=== PATIENT | male | born 1965 | race American Indian/Alaskan Native ===

== ENCOUNTER 2021-10-11 18:29 | Inpatient (IN) | payer OTHER, MEDICARE ==
[2021-10-11] MEDS ORDERED: LIP THERAPY VASELINE TP PRN (19:06)
[2021-10-11] MEDS ORDERED: MINERAL OIL/PETROLATUM, WHITE OPHTH OINT 3.5 GM OU PRN (19:06)
[2021-10-11] MEDS ORDERED: fentaNYL 100 MCG/2 ML INJ IV PRN (19:06)
[2021-10-11] MEDS ORDERED: SODIUM CHLORIDE 0.9% 1000 ML 1,000 ML IV ONE (19:06)
[2021-10-11] MEDS ORDERED: TETANUS,DIPH,PERTUSS(ACELL) VACCINE 0.5 ML SYRINGE IM ONE (19:09)
--- NOTE | 2021-10-11 19:10 | Emergency Department Report ---
ED General Adult HPI - General Chief complaint: Cardiac Arrest/CPR Stated complaint: CARDIAC ARREST Time Seen by Provider: 10/11/21 19:04 Source: EMS (Verbal report received from emergency medical services. EMS documentation not available at time of chart dictation ), RN notes reviewed, old records reviewed Mode of arrival: Stretcher Limitations: Altered Mental Status, Physical Limitation - History of Present Illness Initial comments: The patient was evaluated in the emergency department for symptoms described in the history of present illness. He/she was evaluated in the context of the global COVID-19 pandemic, which necessitated consideration that the patient might be at risk for infection with the virus that causes COVID-19. Institutional protocols and algorithms that pertain to the evaluation of patients at risk for COVID-19 are in a state of rapid change based on information released by regulatory bodies including the CDC and federal and state organizations. These policies and algorithms were followed during the patient's care in the emergency department. Please note that these policies, procedures and recommendations changed on a rapid basis. The patient is a 56-year-old gentleman. He is brought to the hospital as an out of hospital cardiac arrest. History obtained from EMS, as the patient arrives with a GCS of 3, with an endotracheal tube in place, receiving active CPR. EMS reports that this is a dialysis patient, who reportedly completed hemodialysis today. He arrives with paperwork from [facility], and appears to have a history of end-stage renal disease on hemodialysis, also has a history of diabetes, high cholesterol, hypertension. It appears that he was previously on Eliquis for unclear reasons. He also has a history of thoracic aorta stent graft placement. As per his enclosed paperwork, he sees a Dr. Matthias Kelly of vascular surgery at [place]; [phone]. 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 History obtained entirely from EMS They report that this patient collapsed at home after hemodialysis. They report that family and bystanders did not start CPR. It is unclear/uncertain how long elapsed tween the patient collapsing, and arrival of prehospital medical personnel. EMS reports to myself that the patient has been pulseless for over half hour. They intubated the patient, defibrillated him multiple times, and treated him with standard ACLS interventions. Upon arrival to this emergency room, the patient presents with a GCS of 3, and no pulse. Standard ACLS interventions are initiated. He has aggressive CPR, and appropriate medications. He develops multiple shockable rhythms, and he received multiple defibrillations. Amiodarone, lidocaine held given concern for hyperkalemia. EMS did not place a cervical collar in the field. After a prolonged resuscitation here in the emergency room, patient has return of spontaneous circulation. Given multiple cardiac arrest, tenuous hemodynamics, need for IV access, patient has a maximally sterile right-sided femoral central line placed by myself, using ultrasound guidance, please see procedure note after return of spontaneous circulation, cervical collar was placed under my direct supervision, with with C-spine immobilization. Please note that this hospital does not have a postarrest hypothermia protocol. -: This evening - Related Data Allergies Allergy/AdvReac Type Severity Reaction Status Date / Time Unable to Assess Allergy Unverified 10/11/21 20:15 ED Review of Systems ROS: Stated complaint: CARDIAC ARREST Other details as noted in HPI Comment: Unobtainable due to pts medical conditions ED Physical Exam - General Limitations: Altered Mental Status, Physical Limitation General appearance: obtunded - Head Head exam: Present: normocephalic, other (There is a right forehead abrasion) - Eye Eye exam: Present: other (The left pupil is midpoint and does not react to light. Conjunctival injection is noted. The right eye is cloudy, and appears to have a chronic opacity in the right). Absent: normal appearance - ENT ENT exam: Present: normal orophraynx, mucous membranes moist, normal external ear exam, other (There is a nasal abrasion. There is a right cheek abrasion) - Neck Neck exam: Present: normal inspection, other (Cervical collar in place). Absent: tenderness, meningismus - Respiratory Respiratory exam: Present: respiratory distress, other (Chest wall contusion) - Cardiovascular Cardiovascular Exam: Present: tachycardia, irregular rhythm. Absent: systolic murmur, diastolic murmur, rubs, gallop - GI/Abdominal GI/Abdominal exam: Present: soft. Absent: distended, tenderness, guarding, rebound, rigid, pulsatile mass - Rectal Rectal exam: Present: normal inspection - exam: Present: normal inspection External exam: Present: normal external exam - Extremities Exam Extremities exam: Present: normal inspection, other (2+ pulses noted in the bilateral upper and lower extremities. There is no palpable cord. negative H omans sign. Muscular compartments are soft. The pelvis is stable.). Absent: calf tenderness - Back Exam Back exam: Present: normal inspection. Absent: tenderness, CVA tenderness (R), CVA tenderness (L), paraspinal tenderness, vertebral tenderness - Neurological Exam Neurological exam: Present: altered (Nonverbal, GCS of 3) - Skin Skin exam: Present: warm, dry, intact, normal color. Absent: rash ED Course Vital Signs 10/11/21 10/11/21 10/11/21 19:10 19:11 19:15 Temperature Pulse Rate 97 H 103 H 89 Respiratory 10 L 12 Rate Blood Pressure 166/79 O2 Sat by Pulse 100 100 100 Oximetry 10/11/21 10/11/21 10/11/21 19:31 19:45 20:01 Temperature Pulse Rate 97 H 95 H 97 H Respiratory 21 18 21 Rate Blood Pressure 106/70 144/91 166/79 O2 Sat by Pulse 100 100 100 Oximetry 10/11/21 10/11/21 10/11/21 20:12 20:15 20:20 Temperature 97.7 F Pulse Rate 90 Respiratory 20 19 Rate Blood Pressure 182/100 O2 Sat by Pulse 100 100 Oximetry 10/11/21 10/11/21 10/11/21 20:31 20:45 21:01 Temperature Pulse Rate 94 H 99 H 97 H Respiratory 20 20 19 Rate Blood Pressure 188/106 197/102 197/108 O2 Sat by Pulse 100 100 100 Oximetry 10/11/21 10/11/21 10/11/21 21:15 21:17 21:31 Temperature Pulse Rate 95 H 100 H 83 Respiratory 21 20 Rate Blood Pressure 205/105 205/105 169/85 O2 Sat by Pulse 100 100 100 Oximetry 10/11/21 10/11/21 10/11/21 21:45 22:01 22:09 Temperature Pulse Rate 76 84 Respiratory 19 20 20 Rate Blood Pressure 172/98 188/104 O2 Sat by Pulse 100 100 100 Oximetry 10/11/21 10/11/21 10/11/21 22:15 22:31 22:45 Temperature Pulse Rate 85 94 H 84 Respiratory 16 19 18 Rate Blood Pressure 191/100 179/88 166/94 O2 Sat by Pulse 100 100 100 Oximetry 10/11/21 10/11/21 10/11/21 23:27 23:31 23:45 Temperature Pulse Rate 106 H 92 H 86 Respiratory 13 18 18 Rate Blood Pressure 166/94 194/113 202/108 O2 Sat by Pulse 100 100 100 Oximetry 10/12/21 10/12/21 10/12/21 00:01 00:15 00:31 Temperature Pulse Rate 91 H 89 85 Respiratory 17 13 17 Rate Blood Pressure 178/109 187/101 171/116 O2 Sat by Pulse 100 100 100 Oximetry 10/12/21 10/12/21 10/12/21 00:45 01:01 01:15 Temperature Pulse Rate 94 H 94 H 99 H Respiratory 13 16 16 Rate Blood Pressure 171/116 168/111 168/111 O2 Sat by Pulse 100 100 100 Oximetry 10/12/21 10/12/21 10/12/21 01:31 01:45 02:01 Temperature Pulse Rate 97 H 104 H 97 H Respiratory 17 16 10 L Rate Blood Pressure 179/113 179/113 183/115 O2 Sat by Pulse 100 100 100 Oximetry 10/12/21 10/12/21 10/12/21 02:15 02:31 02:45 Temperature Pulse Rate 104 H 99 H 105 H Respiratory 19 17 10 L Rate Blood Pressure 183/115 180/99 180/99 O2 Sat by Pulse 100 100 100 Oximetry 10/12/21 10/12/21 10/12/21 03:01 03:31 03:58 Temperature Pulse Rate 109 H 108 H 109 H Respiratory 18 18 Rate Blood Pressure 170/103 184/106 170/103 O2 Sat by Pulse 100 100 Oximetry 10/12/21 10/12/21 10/12/21 03:59 04:00 04:01 Temperature Pulse Rate 96 H 96 H Respiratory 17 Rate Blood Pressure 185/98 185/98 O2 Sat by Pulse 100 100 100 Oximetry 10/12/21 10/12/21 10/12/21 04:30 05:01 05:31 Temperature Pulse Rate 93 H 95 H 97 H Respiratory 16 20 15 Rate Blood Pressure 146/82 167/89 153/83 O2 Sat by Pulse 100 100 100 Oximetry 10/12/21 10/12/21 10/12/21 06:01 06:31 07:01 Temperature Pulse Rate 102 H 93 H 89 Respiratory 19 18 18 Rate Blood Pressure 153/83 170/86 161/92 O2 Sat by Pulse 100 100 100 Oximetry 01/21/22 01/21/22 01/21/22 08:01 08:30 08:57 Temperature Pulse Rate 94 H 93 H 96 H Respiratory 17 16 Rate Blood Pressure 145/80 145/80 154/87 O2 Sat by Pulse 100 100 100 Oximetry 10/12/21 10/12/21 10/12/21 09:01 09:31 10:01 Temperature Pulse Rate 95 H 97 H 95 H Respiratory 16 15 16 Rate Blood Pressure 154/87 149/89 157/92 O2 Sat by Pulse 100 100 100 Oximetry 10/12/21 10/12/21 10/12/21 10:31 11:01 11:31 Temperature Pulse Rate 90 93 H 89 Respiratory 16 17 18 Rate Blood Pressure 149/87 146/83 147/91 O2 Sat by Pulse 100 100 100 Oximetry 10/12/21 10/12/21 10/12/21 12:01 12:31 13:01 Temperature Pulse Rate 89 102 H 95 H Respiratory 16 22 16 Rate Blood Pressure 151/82 147/82 151/81 O2 Sat by Pulse 100 100 100 Oximetry 10/12/21 10/12/21 10/12/21 13:31 14:01 14:31 Temperature Pulse Rate 102 H 101 H 105 H Respiratory 16 16 16 Rate Blood Pressure 150/84 147/90 149/81 O2 Sat by Pulse 100 100 100 Oximetry 10/12/21 10/12/21 10/12/21 15:01 15:31 16:01 Temperature Pulse Rate 102 H 97 H 104 H Respiratory 16 16 16 Rate Blood Pressure 147/78 152/88 152/82 O2 Sat by Pulse 100 100 100 Oximetry 10/12/21 10/12/21 10/12/21 16:31 16:38 17:01 Temperature Pulse Rate 100 H 99 H 104 H Respiratory 16 17 Rate Blood Pressure 151/85 152/88 147/88 O2 Sat by Pulse 100 100 100 Oximetry 10/12/21 10/12/21 10/12/21 17:31 18:01 18:31 Temperature Pulse Rate 100 H 99 H 103 H Respiratory 16 16 16 Rate Blood Pressure 157/82 160/79 149/87 O2 Sat by Pulse 100 100 100 Oximetry - Reevaluation(s) Reevaluation #1: 10/11/21 20:04 Differential diagnosis, including but not limited to: Hyperkalemia, azotemia, uremia, pneumonia, urinary tract infection, closed head injury, cervical spine injury, facial injury, aortic dissection Assessment and plan: 56-year-old gentleman status post [id number] cardiac arrest, prolonged resuscitation, now with return of spontaneous circulation. Patient demonstrated myoclonic jerks. He most likely has irreversible anoxic brain injury. This hospital does not have a postarrest hypothermia protocol. The patient is not currently accompanied by friends or family at this time for collateral information or additional information. Obtain appropriate laboratory studies, CT scan of the brain, facial bones and cervical spine, and CT angiogram chest, abdomen pelvis with aorta protocol. Maintain patient on antibiotics, start steroids, continue fluids, and vasopressors if necessary. Contacted critical care physician on-call, Dr. Levy Discussed the patient's history, physical, plan of care, and overall clinical impression. She is in agreement with the plan of care. The critical care team will facilitate admission to the ICU, presuming no findings noted on CT scan that would require transfer. Currently awaiting callback from nephrology. 10/11/21 20:18 Discussed the patient's history, physical, laboratory studies and clinical impression with nephrology on-call, Dr. Abel Waldrop Elevated troponin is likely a type II troponin leak. Hypercalcemia likely s econdary to dehydration. Lactic acidosis likely multifactorial, likely secondary primarily to cardiac arrest, and suspect that this is a type II lactic acidosis. Lactated Ringer's fluid is ordered. Since patient is status postcardiac arrest and has an abnormal x-ray of the chest, including what appears to be a thoracic aortic stent, he requires emergent CT angiogram to exclude time sensitive diagnosis, such as aortic dissection and/or aortic catastrophe. He is not accompanied by friends or f amily at this time for collateral information or consent, and therefore, I have emergently and administratively consented this patient for CT scan with IV contrast to evaluate for time sensitive diagnoses. Consent form filled out by myself and placed on the chart. Care be transferred to the oncoming ER physician to follow-up on CT scans and arrange for final disposition to the hospitalist service, if no findings noted that would require transfer - Central Line Placement Right Femoral Consent Obtained: emergent situation Time Out Performed: Yes Patient Placed on Monitor/Pulse Ox: Yes MD Prep: mask, gown, gloves Central Line Prep: Chlorhexidine scrub Local Anesthesia Used: Lidocaine 1% Amount of Anesthesia Used (mls): 5 Ultrasound Used for Placement: Yes Central Line Lumen Inserted: triple Reason for Insertion: Emergency Venous Access Bloods Obtained for Lab: No Central Line Position: good blood return, all ports aspirated, flus, sutured in place with 2-0 Dressing Applied: Tegaderm Complications: none Additional Comments: Patient prepped and draped in typical maximal sterile fashion. Using ultrasound guidance, right-sided femoral vein is cannulated with an 18-gauge needle, with 3 inch plastic catheter, guidewire, 0.032 x 60 cm, J-tip with a 3 mm radius is then inserted into the guiding catheter, and appropriate luminal placement is confirmed with real-time coqso-vd-fyfy ultrasound guidance. A stab incision is made with an 11-gauge blade, and then incision is dilated. The 7 [place] triple-lumen catheter has each of the 3 ports flushed with sterile saline in advance of placement. Then, a 7 [place] triple-lumen catheter is inserted over the guidewire, and sutured to the skin. Real-time ultrasound guidance confirms appropriate luminal placement. Ports are aspirated easily, and flushed easily. Blue Biopatch is then affixed to the skin, and Tegaderm is applied to the skin. This patient tolerated the procedure well, and without obvious complication. Blood loss estimated at less than 50 cc. ED Medical Decision Making - Lab Data Result diagrams: 10/11/21 19:27 10/11/21 19:27 Lab Results 10/11/21 Range/Units 19:27 Blood Type O POSITIVE Lab Results 10/11/21 10/11/21 10/11/21 Range/Units 19:27 19:27 19:27 WBC 8.8 (4.5-11.0) K/mm3 RBC 3.52 L (3.65-5.03) M/mm3 Hgb 9.5 L (11.8-15.2) gm/dl Hct 32.4 L (35.5-45.6) % MCV 92 (84-94) fl MCH 27 L (28-32) pg MCHC 29 L (32-34) % RDW 20.8 H (13.2-15.2) % Plt Count 166 (140-440) K/mm3 Seg Neutrophils % Dev Technical Mgr PT 16.0 H (12.2-14.9) Sec. INR 1.16 H (0.87-1.13) APTT 54.4 H (24.2-36.6) Sec. Sodium (137-145) mmol/L Potassium (3.6-5.0) mmol/L Chloride (98-107) mmol/L Carbon Dioxide (22-30) mmol/L Anion Gap mmol/L BUN (9-20) mg/dL Creatinine (0.8-1.3) mg/dL Estimated GFR ml/min BUN/Creatinine Ratio % Glucose (75-100) mg/dL Lactic Acid 6.90 H* (0.7-2.0) mmol/L Calcium (8.4-10.2) mg/dL Total Bilirubin (0.1-1.2) mg/dL AST (5-40) units/L ALT (7-56) units/L Alkaline Phosphatase (35-129) units/L Ammonia (25-60) umol/L Total Creatine Kinase (55-170) units/L Troponin T (0.00-0.029) ng/mL Total Protein (6.3-8.2) g/dL Albumin (3.9-5) g/dL Albumin/Globulin Ratio % Salicylates (2.8-20.0) mg/dL Acetaminophen (10.0-30.0) ug/mL Plasma/Serum Alcohol (0-0.07) % Blood Type 10/11/21 10/11/21 10/11/21 Range/Units 19:27 19:27 19:27 WBC (4.5-11.0) K/mm3 RBC (3.65-5.03) M/mm3 Hgb (11.8-15.2) gm/dl Hct (35.5-45.6) % MCV (84-94) fl MCH (28-32) pg MCHC (32-34) % RDW (13.2-15.2) % Plt Count (140-440) K/mm3 Seg Neutrophils % PT (12.2-14.9) Sec. INR (0.87-1.13) APTT (24.2-36.6) Sec. Sodium 143 (137-145) mmol/L Potassium 3.2 L (3.6-5.0) mmol/L Chloride 100.3 (98-107) mmol/L Carbon Dioxide 24 (22-30) mmol/L Anion Gap 22 mmol/L BUN 15 (9-20) mg/dL Creatinine 3.3 H (0.8-1.3) mg/dL Estimated GFR 23 ml/min BUN/Creatinine Ratio 5 % Glucose 159 H (75-100) mg/dL Lactic Acid (0.7-2.0) mmol/L Calcium 12.4 H* (8.4-10.2) mg/dL Total Bilirubin 0.70 (0.1-1.2) mg/dL AST 81 H (5-40) units/L ALT 39 (7-56) units/L Alkaline Phosphatase 184 H (35-129) units/L Ammonia 36.0 (25-60) umol/L Total Creatine Kinase 43 L (55-170) units/L Troponin T 0.340 H* (0.00-0.029) ng/mL Total Protein 6.5 (6.3-8.2) g/dL Albumin 3.5 L (3.9-5) g/dL Albumin/Globulin Ratio 1.2 % Salicylates < 0.3 L (2.8-20.0) mg/dL Acetaminophen (10.0-30.0) ug/mL Plasma/Serum Alcohol (0-0.07) % Blood Type 10/11/21 10/11/21 10/11/21 Range/Units 19:27 19:27 19:27 WBC (4.5-11.0) K/mm3 RBC (3.65-5.03) M/mm3 Hgb (11.8-15.2) gm/dl Hct (35.5-45.6) % MCV (84-94) fl MCH (28-32) pg MCHC (32-34) % RDW (13.2-15.2) % Plt Count (140-440) K/mm3 Seg Neutrophils % PT (12.2-14.9) Sec. INR (0.87-1.13) APTT (24.2-36.6) Sec. Sodium (137-145) mmol/L Potassium (3.6-5.0) mmol/L Chloride (98-107) mmol/L Carbon Dioxide (22-30) mmol/L Anion Gap mmol/L BUN (9-20) mg/dL Creatinine (0.8-1.3) mg/dL Estimated GFR ml/min BUN/Creatinine Ratio % Glucose (75-100) mg/dL Lactic Acid (0.7-2.0) mmol/L Calcium (8.4-10.2) mg/dL Total Bilirubin (0.1-1.2) mg/dL AST (5-40) units/L ALT (7-56) units/L Alkaline Phosphatase (35-129) units/L Ammonia (25-60) umol/L Total Creatine Kinase (55-170) units/L Troponin T (0.00-0.029) ng/mL Total Protein (6.3-8.2) g/dL Albumin (3.9-5) g/dL Albumin/Globulin Ratio % Salicylates (2.8-20.0) mg/dL Acetaminophen 5.0 L (10.0-30.0) ug/mL Plasma/Serum Alcohol < 0.01 (0-0.07) % Blood Type O POSITIVE - EKG Data 10/11/21 20:02 The EKG is interpreted at 19: 49 A. fib, rate 101 bpm. Normal axis, QTC 508 ms, PVC, motion artifact. Abnormal EKG. Not a STEMI. No prior for comparison. - Radiology Data Radiology results: report reviewed, image reviewed CHEST 1 VIEW 10/11/2021 7:15 PM INDICATION / CLINICAL INFORMATION: ETT pl acement. COMPARISON: None available. FINDINGS: SUPPORT DEVICES: An ET tube terminates 3 cm above the diamond. HEART / MEDIASTINUM: The cardiac silhouette is mildly enlarged with prior sternotomy and thoracic aortic stent graft placement. LUNGS / PLEURA: There are nonspecific generalized bilateral pulmonary opacities. No significant pleural effusion. No pneumothorax. ADDITIONAL FINDINGS: No sign ificant additional findings. IMPRESSION: 1. Satisfactory positioning of ET tube. 2. Nonspecific bilateral pulmonary opacities could represent pneumonia or edema/atelectasis. Continued radiographic follow-up to resolution is recommended. Signer Name: Tyler Olivarez MD Signed: 10/11/2021 6:29 PM Workstation Name: [id number] Critical Care Time: Yes Critical care time in (mins) excluding proc time.: 74 Critical care attestation.: If time is entered above; I have spent that time in minutes in the direct care of this critically ill patient, excluding procedure time. ED Disposition Clinical Impression: Cardiac arrest, Closed head injury, Atrial fibrillation, End stage renal disease, SIRS (systemic inflammatory response syndrome), Status post insertion of endovascular thoracic aortic stent graft, Hypercalcemia, Hypokalemia Disposition: 09 ADMITTED INPATIENT Is pt being admited?: Yes Does the pt Need Aspirin: No Condition: Critical
--- NOTE | 2021-10-11 19:33 | XRay Report ---
CHEST 1 VIEW 10/11/2021 7:15 PM INDICATION / CLINICAL INFORMATION: ETT placement. COMPARISON: None available. FINDINGS: SUPPORT DEVICES: An ET tube terminates 3 cm above the diamond. HEART / MEDIASTINUM: The cardiac silhouette is mildly enlarged with prior sternotomy and thoracic aor tic stent graft placement. LUNGS / PLEURA: There are nonspecific generalized bilateral pulmonary opacities. No significant pleur al effusion. No pneumothorax. ADDITIONAL FINDINGS: No significant additional findings. IMPRESSION: 1. Satisfactory positioning of ET tube. 2. Nonspecific bilateral pulmonary opacities could represent pneumonia or edema/atelectasis. Continue d radiographic follow-up to resolution is recommended. Signer Name: Tyler Olivarez MD Signed: 10/11/2021 7:29 PM Workstation Name: [id number]
[2021-10-11] MEDS ORDERED: AZITHROMYCIN/NS 500 MG/250 ML 500 MG/250 ML BAG IV ONE (19:35)
[2021-10-11] MEDS ORDERED: cefTRIAXone/NS 1 GM/50 ML 1 GM/50 ML BAG IV ONE (19:35)
[2021-10-11] MEDS ORDERED: dexAMETHasone 4 MG/ML VIAL IV ONE (19:55)
[2021-10-11 20:01] LABS: Mean Corpuscular HGB Conc 29 % (32-34); Mean Corpuscular Volume 92 fl (84-94); Platelet Count 166 K/mm3 (140-440); Red Blood Count 3.52 M/mm3 (3.65-5.03)
[2021-10-11 20:07] LABS: Hematocrit 32.4 % (35.5-45.6); Hemoglobin 9.5 gm/dl (11.8-15.2); Red Cell Distribution Width 20.8 % (13.2-15.2)
[2021-10-11] MEDS ORDERED: LACTATED RINGERS 1000 ML IV SOLN IV ONE (20:08)
[2021-10-11 20:11] LABS: INR 1.16 (0.87-1.13)
[2021-10-11 20:12] LABS: Partial Thromboplastin Time 54.4 Sec. (24.2-36.6)
[2021-10-11 20:15] LABS: Albumin 3.5 g/dL (3.9-5)
[2021-10-11 20:16] LABS: Calcium 12.4 mg/dL (8.4-10.2)
[2021-10-11 20:50] LABS: Chol/HDL Ratio 2.03 %
[2021-10-11] MEDS: fentaNYL DRIP Premix 2,000 MCG/100 ML BAG IV SCH (20:58)
[2021-10-11] MEDS: POTASSIUM CHLORIDE 10 MEQ 10 MEQ/100 ML BAG IV SCH ×2 (22:00→23:00)
[2021-10-11] MEDS: SENNOSIDES/DOCUSATE SODIUM 8.6/50 MG TAB FEEDTUBE SCH (22:17)
[2021-10-11] MEDS: FAMOTIDINE 20 MG/2 ML INJ IV SCH (22:17)
--- NOTE | 2021-10-12 00:09 | Cat Scan Report ---
CT HEAD WITHOUT CONTRAST INDICATION / CLINICAL INFORMATION: Cardiac arrest, closed head injury. TECHNIQUE: All CT scans at this location are performed using CT dose reduction for ALARA by means of automated exposure control. COMPARISON: None available. FINDINGS: HEMORRHAGE: None. EXTRA-AXIAL SPACES: Normal in size and morphology for the patient's age. VENTRICULAR SYSTEM: Normal in size and morphology for the patient's age. CEREBRAL PARENCHYMA: Lacunar infarct in the right periventricular white matter. No acute territorial infarct. MIDLINE SHIFT / HERNIATION: None. CEREBELLUM / BRAINSTEM: No significant abnormality. ORBITS: Contracted right optic globe which is likely chronic. SOFT TISSUES: Right periorbital soft tissue swelling. SKULL: No significant abnormality. PARANASAL SINUSES / MASTOID AIR CELLS: Small amount of fluid in the maxillary and ethmoid air cells. ADDITIONAL FINDINGS: None. IMPRESSION: 1. No acute intracranial abnormality. 2. Chronic appearing lacunar infarct in the right periventricular white matter. 3. Right periorbital soft tissue swelling. Signer Name: Abel Saab MD Signed: 10/12/2021 12:05 AM Workstation Name: [id number]
--- NOTE | 2021-10-12 00:12 | Cat Scan Report ---
CT MAXILLOFACIAL WITHOUT CONTRAST INDICATION / CLINICAL INFORMATION: Cardiac arrest, closed head injury. TECHNIQUE: All CT scans at this location are performed using CT dose reduction for ALARA by means of automated exposure control. COMPARISON: CT head performed at the same time. FINDINGS: FACIAL BONES: Mildly comminuted and depressed nasal bone fractures. No other facial bone fracture. PARANASAL SINUSES: Fluid within the ethmoid air cells and maxillary/sphenoid sinuses. ORBITS: Bony orbits are intact. Contracted and calcified right optic globe appears chronic. SOFT TISSUES: Right periorbital soft tissue swelling. VISUALIZED INTRACRANIAL STRUCTURES: No significant abnormality. ADDITIONAL FINDINGS: None. IMPRESSION: 1. Mildly comminuted and depressed nasal bone fractures. No other facial bone fracture. 2. Right periorbital soft tissue swelling. Signer Name: Abel Saab MD Signed: 10/12/2021 12:08 AM Workstation Name: [id number]
--- NOTE | 2021-10-12 00:13 | Cat Scan Report ---
CT CERVICAL SPINE WITHOUT CONTRAST INDICATION / CLINICAL INFORMATION: Cardiac arrest, closed head and neck injury. TECHNIQUE: Axial CT images were obtained through the cervical spine. Sagittal and coronal reformatted images were produced. All CT scans at this location are performed using CT dose reduction for ALARA by means of automated exposure control. COMPARISON: None available. FINDINGS: VERTEBRAE: No significant abnormality. ALIGNMENT: No significant abnormality. DISC SPACES: Mild to moderate multilevel discogenic spondylosis. FACET JOINTS: No significant abnormality. CRANIOCERVICAL JUNCTION:No significant abnormality. SPINAL CANAL: No significant abnormality. PARASPINAL SOFT TISSUES: No significant abnormality. ADDITIONAL FINDINGS: None. LUNG APICES: No significant abnormality of visualized lungs. IMPRESSION: 1. No acute abnormality. Signer Name: Abel Saab MD Signed: 10/12/2021 12:09 AM Workstation Name: [id number]
--- NOTE | 2021-10-12 00:22 | Cat Scan Report ---
CTA CHEST WITH CONTRAST INDICATION / CLINICAL INFORMATION: Cardiac arrest, Cardiomegaly, Aorta protocol. TECHNIQUE: Axial CT images were obtained through the chest after injection of 100 mL Omnipaque 350 IV contrast. 3 plane MIP and/or 3D reconstructions were produced. All CT scans at this location are per formed using CT dose reduction for ALARA by means of automated exposure control. COMPARISON: None available. FINDINGS: PULMONARY ARTERIES: No pulmonary emboli. THORACIC AORTA: Thoracic endograft stent extends from the distal ascending thoracic aorta through the aortic arch into the mid descending thoracic aorta. Graft is patent without acute abnormality. Proxi mal left common carotid artery stent is patent. Occlusion of the proximal left subclavian artery with reconstitution by a left common carotid-subclavian bypass graft. HEART: Heart is moderately enlarged. No significant pericardial effusion. CORONARY ARTERY CALCIFICATION: Moderate. Left and right coronary artery stents. MEDIASTINUM / MACY: Soft tissue hematoma in the upper mediastinum possibly related to recent midline sternotomy and aortic stent graft placement. No acute arterial extravasation into the mediastinum. PLEURA: Small right pleural effusion. Moderately extensive left calcified pleural plaques possibly re lated to previous hemothorax. Small amount of fluid loculated in the right major fissure. No pneumoth orax. LUNGS: Mosaic attenuation of the lungs possibly related to lower airways disease. Impacted mucus seen within the posterior right lower lobe. ADDITIONAL FINDINGS: Left upper extremity venous stents appear patent. Moderate stenosis of the left brachiocephalic vein. UPPER ABDOMEN: Small amount of free fluid in the upper abdomen. See separate CT abdomen and pelvis f or full description. SKELETAL STRUCTURES: Old, healed left rib fractures likely related to previous thoracotomy. Recent st ernotomy. IMPRESSION: 1. Patent thoracic aortic stent graft with no definite acute abnormality of the thoracic aorta. Super ior mediastinal soft tissue density may represent hematoma related to recent surgery. No acute arteri al extravasation. 2. Cardiomegaly. 3. Small right pleural effusion. Signer Name: Abel Saab MD Signed: 10/12/2021 12:18 AM Workstation Name: [id number]
--- NOTE | 2021-10-12 00:29 | Cat Scan Report ---
CT ABDOMEN AND PELVIS WITH CONTRAST INDICATION / CLINICAL INFORMATION: Cardiac arrest. TECHNIQUE: Axial CT images were obtained through the abdomen and pelvis after 100 mL Omnipaque [address] scans at this location are performed using CT dose reduction for ALARA by means of automated exposure control. COMPARISON: CTA chest performed at the same time. FINDINGS: LOWER CHEST: See CTA chest report. LIVER: No significant abnormality. GALLBLADDER: No significant abnormality. BILE DUCTS: No significant abnormality. PANCREAS: No significant abnormality. SPLEEN: No significant abnormality. ADRENALS: No significant abnormality. RIGHT KIDNEY / URETER: Polycystic kidney. No hydronephrosis. LEFT KIDNEY / URETER: Polycystic kidney. No hydronephrosis. STOMACH / SMALL BOWEL: No significant abnormality. COLON: Diverticulosis without acute inflammation. APPENDIX: Not visualized. PERITONEUM: Small amount of free fluid in the abdomen and pelvis. No free air. No fluid collection. LYMPH NODES: No significant adenopathy. AORTA / ARTERIES: Moderate atherosclerotic calcification without acute abnormality. Embolization coil s in the pancreaticoduodenal artery and other branches of the SMA. IVC / VEINS: Right femoral central venous line in the right external iliac vein. Small right groin so ft tissue, likely related to vascular access. URINARY BLADDER: Contracted around a Barolw catheter. REPRODUCTIVE ORGANS: No significant abnormality. ADDITIONAL FINDINGS: Mild body wall edema. SKELETAL SYSTEM: Bilateral chronic sacroiliitis with bony ankylosis. No acute osseous abnormality. IMPRESSION: 1. No acute process in the abdomen or pelvis. 2. Small amount of ascites and body wall edema which can be seen in anasarca or other fluid imbalance . 3. Please see CTA chest performed at the same time for further details. Signer Name: Abel Saab MD Signed: 10/12/2021 12:25 AM Workstation Name: [id number]
[2021-10-12] MEDS ORDERED: MORPHINE 2 MG/1 ML INJ IV PRN (02:15)
[2021-10-12] MEDS ORDERED: MAGNESIUM HYDROXIDE (MOM) ORAL LIQD UDC PO PRN (02:15)
[2021-10-12] MEDS ORDERED: ONDANSETRON 4 MG/2 ML INJ IV PRN (02:15)
[2021-10-12] MEDS ORDERED: ACETAMINOPHEN 650 MG RECT SUPP PR PRN (02:15)
[2021-10-12] MEDS ORDERED: MORPHINE 4 MG/1 ML INJ IV PRN (02:15)
[2021-10-12] MEDS ORDERED: SODIUM CHLORIDE 0.9% 1000 ML 1,000 ML IV SCH (02:15)
[2021-10-12 02:29] LABS: Band Neutrophils # (Manual) 0.1 K/mm3; Basophils % (Manual) 0 % (0.0-1.8); Eosinophils % (Manual) 0 % (0.0-4.3); Promyelocytes # (Manual) 0.1 K/mm3; Total Cells Counted 100
[2021-10-12 02:30] LABS: Anisocytosis 1+; Giant Platelets Rare; Hypochromasia Few; Large Platelets Few; Macrocytosis Few; Platelet Estimate Consistent w Auto
--- NOTE | 2021-10-12 02:40 | History and Physical Report ---
History of Present Illness Date of examination: 10/12/21 Date of admission: 10/12/2021 Chief complaint: Cardiac Arrest History of present illness: 56-year-old male brought into the emergency room by EMS in cardiac arrest. Most information was obtained from the ER staff as patient is already intubated and sedated. Patient appears to have known history of end-stage renal disease on dialysis, diabetes mellitus, hyperlipidemia and hypertension, history of thoracic aorta stent graft placement. Patient was said to have collapsed at home after dialysis today. No CPR was started by the family or bystanders. EMS indicates the patient was pulseless for about an hour. He was intubated, defibrillated multiple times according to ACLS protocol. After prolonged resuscitation in the emergency room upon arrival patient had return of spontaneous circulation. Work-up in the emergency room today, chest x-ray reveals nonspecific bilateral pulmonary opacities which could represent pneumonia or edema. CT of the abdomen and pelvis was unremarkable. Lab was significant for lactic acidosis, hypercalcemia of 12.4, creatinine of 3.3, hypokalemia of 3.2. Past History Past Medical History: other (Not obtainable) Past Surgical History: Other (Not obtainable) Family history: other (Not obtainable) Medications and Allergies Allergies Allergy/AdvReac Type Severity Reaction Status Date / Time Unable to Assess Allergy Unverified 10/11/21 20:15 Active Meds: Active Medications Acetaminophen (Acetaminophen 650 Mg Rect Supp) 650 mg IA Q6H PRN PRN Reason: Pain MILD(1-3)/Fever >100.5/SAM Famotidine (Famotidine 20 Mg/2 Ml Inj) 20 mg IV BID OK Last Admin: 10/11/21 22:17 Dose: 20 mg Fentanyl (Fentanyl 100 Mcg/2 Ml Inj) 50 mcg IV Q10MIN PRN PRN Reason: ANALGESIA Hydrophilic Ointment (Lip Therapy Vaseline) 1 applic TP Q2HR PRN PRN Reason: Dry Lips Fentanyl Citrate (Fentanyl Drip Premix) 2,000 mcg in 100 mls @ 3.856 mls/hr IV TITR OK; Protocol Last Admin: 10/11/21 20:58 Dose: 2 mcg/kg/hr, 7.711 mls/hr Sodium Chloride (Nacl 0.9% 1000 Ml) 1,000 mls @ 125 mls/hr IV DIRECT OK Magnesium Hydroxide (Magnesium Hydroxide (Mom) Oral Liqd Udc) 30 ml PO Q4H PRN PRN Reason: Constipation Morphine Sulfate (Morphine 2 Mg/1 Ml Inj) 2 mg IV Q4H PRN PRN Reason: Pain, Moderate (4-6) Morphine Sulfate (Morphine 4 Mg/1 Ml Inj) 4 mg IV Q4H PRN PRN Reason: Pain , Severe (7-10) Multi-Ingred Cream/Lotion/Oil/Oint (Mineral Oil/Petrolatum, White Ophth Oint 3.5 Gm) 1 applic OU Q4HR PRN PRN Reason: Dry Eye(s) Ondansetron HCl (Ondansetron 4 Mg/2 Ml Inj) 4 mg IV Q8H PRN PRN Reason: Nausea And Vomiting Senna/Docusate Sodium (Sennosides/Docusate Sodium 8.6/50 Mg Tab) 1 tab FEEDTUBE BID OK Last Admin: 10/11/21 22:17 Dose: Not Given Sodium Chloride (Sodium Chloride 0.9% 10 Ml Flush Syringe) 10 ml IV BID [facility] Sodium Chloride (Sodium Chloride 0.9% 10 Ml Flush Syringe) 10 ml IV PRN PRN PRN Reason: LINE FLUSH Review of Systems ROS unobtainable: due to endotracheal tube Exam - Constitutional Vitals: Temp Pulse Resp BP Pulse Ox 97.7 F 94 H 13 171/116 100 10/11/21 20:12 10/12/21 00:45 10/12/21 00:45 10/12/21 00:45 10/12/21 00:45 General appearance: Present: no acute distress, well-nourished, other (Intubated and Sedated) - EENT Eyes: Present: PERRL, EOM intact. Absent: scleral icterus ENT: hearing intact, clear oral mucosa, dentition normal - Neck Neck: Present: supple, normal ROM - Respiratory Respiratory effort: normal Respiratory: bilateral: CTA - Cardiovascular Rhythm: regular Heart Sounds: Present: S1 & S2. Absent: gallop, systolic murmur, diastolic murmur, rub, click - Extremities Extremities: no ischemia, pulses intact, pulses symmetrical, No edema, normal temperature, normal color, Full ROM, abnormal (AV fistula in the left upper arm) Peripheral Pulses: within normal limits - Abdominal General gastrointestinal: Present: soft, non-tender, non-distended, normal bowel sounds. Absent: mass - Integumentary Integumentary: Present: clear, warm, dry. Absent: rash - Musculoskeletal Musculoskeletal: strength equal bilaterally - Psychiatric Psychiatric: cooperative - Neurologic Neurologic: CNII-XII intact, no focal deficits, other (Intubated and sedated) HEART Score - HEART Score Troponin: Troponin T 0.340 ng/mL (0.00-0.029) H* 10/11/21 19:27 Results - Labs CBC & Chem 7: 10/11/21 19:27 10/11/21 19:27 Labs: Abnormal lab results 10/11/21 10/11/21 10/11/21 Range/Units 19: 19: 19:27 RBC 3.52 L (3.65-5.03) M/mm3 Hgb 9.5 L (11.8-15.2) gm/dl Hct 32.4 L (35.5-45.6) % MCH 27 L (28-32) pg MCHC 29 L (32-34) % RDW 20.8 H (13.2-15.2) % Seg Neuts % (Manual) 93.0 H (40.0-70.0) % Lymphocytes % (Manual) 1.0 L (13.4-35.0) % Seg Neutrophils # Man 8.2 H (1.8-7.7) K/mm3 Lymphocytes # (Manual) 0.1 L (1.2-5.4) K/mm3 PT 16.0 H (12.2-14.9) Sec. INR 1.16 H (0.87-1.13) APTT 54.4 H (24.2-36.6) Sec. Potassium (3.6-5.0) mmol/L Creatinine (0.8-1.3) mg/dL Glucose (75-100) mg/dL Lactic Acid 6.90 H* (0.7-2.0) mmol/L Calcium (8.4-10.2) mg/dL AST (5-40) units/L Alkaline Phosphatase (35-129) units/L Total Creatine Kinase (55-170) units/L Troponin T (0.00-0.029) ng/mL Albumin (3.9-5) g/dL HDL Cholesterol (40-59) mg/dL Salicylates (2.8-20.0) mg/dL Acetaminophen (10.0-30.0) ug/mL 10/11/21 10/11/21 10/11/21 Range/Units 19:27 19:27 19:27 RBC (3.65-5.03) M/mm3 Hgb (11.8-15.2) gm/dl Hct (35.5-45.6) % MCH (28-32) pg MCHC (32-34) % RDW (13.2-15.2) % Seg Neuts % (Manual) (40.0-70.0) % Lymphocytes % (Manual) (13.4-35.0) % Seg Neutrophils # Man (1.8-7.7) K/mm3 Lymphocytes # (Manual) (1.2-5.4) K/mm3 PT (12.2-14.9) Sec. INR (0.87-1.13) APTT (24.2-36.6) Sec. Potassium 3.2 L (3.6-5.0) mmol/L Creatinine 3.3 H (0.8-1.3) mg/dL Glucose 159 H (75-100) mg/dL Lactic Acid (0.7-2.0) mmol/L Calcium 12.4 H* (8.4-10.2) mg/dL AST 81 H (5-40) units/L Alkaline Phosphatase 184 H (35-129) units/L Total Creatine Kinase 43 L (55-170) units/L Troponin T 0.340 H* (0.00-0.029) ng/mL Albumin 3.5 L (3.9-5) g/dL HDL Cholesterol 63 H (40-59) mg/dL Salicylates < 0.3 L (2.8-20.0) mg/dL Acetaminophen 5.0 L (10.0-30.0) ug/mL 10/12/21 Range/Units 01:42 RBC (3.65-5.03) M/mm3 Hgb (11.8-15.2) gm/dl Hct (35.5-45.6) % MCH (28-32) pg MCHC (32-34) % RDW (13.2-15.2) % Seg Neuts % (Manual) (40.0-70.0) % Lymphocytes % (Manual) (13.4-35.0) % Seg Neutrophils # Man (1.8-7.7) K/mm3 Lymphocytes # (Manual) (1.2-5.4) K/mm3 PT (12.2-14.9) Sec. INR (0.87-1.13) APTT (24.2-36.6) Sec. Potassium (3.6-5.0) mmol/L Creatinine (0.8-1.3) mg/dL Glucose (75-100) mg/dL Lactic Acid 2.70 H* (0.7-2.0) mmol/L Calcium (8.4-10.2) mg/dL AST (5-40) units/L Alkaline Phosphatase (35-129) units/L Total Creatine Kinase (55-170) units/L Troponin T (0.00-0.029) ng/mL Albumin (3.9-5) g/dL HDL Cholesterol (40-59) mg/dL Salicylates (2.8-20.0) mg/dL Acetaminophen (10.0-30.0) ug/mL Assessment and Plan - Patient Problems (1) Cardiac arrest Current Visit: Yes Status: Acute Plan to address problem: Patient is status post successful resuscitation. Currently intubated and sedated. 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 (2) End stage renal disease Current Visit: Yes Status: Acute Plan to address problem: Patient on dialysis. Consult placed to nephrology for evaluation. (3) Hypokalemia Current Visit: Yes Status: Acute Plan to address problem: We will replete potassium and monitor chemistry. (4) Pneumonia Current Visit: Yes Status: Acute Plan to address problem: Patient placed on empiric IV antibiotics. Will also check for COVID-19. (5) Lactic acidosis Current Visit: Yes Status: Acute Plan to address problem: Possibly secondary to the cardiac arrest. Will monitor chemistry. (6) Elevated troponin Current Visit: Yes Status: Acute Plan to address problem: Possibly troponin leak versus cardiac resuscitation. Will monitor troponin levels. We await further evaluation by cardiology. (7) DVT prophylaxis Current Visit: Yes Status: Acute Plan to address problem: Patient placed on subcutaneous heparin. (8) Full code status Current Visit: Yes Status: Acute Plan to address problem: Patient is full code.
[2021-10-12 05:07] LABS: ABG Base Excess 1.7 mmol/L (-2.0-3.0); ABG HCO3 26.2 mmol/L (20.0-26.0); ABG Methemoglobin 0.6 % (0.0-1.5); ABG Oxygen Saturation 99.6 % (95.0-99.0); ABG PCO2 41.1 mm Hg; ABG PH 7.423 pH Units (7.350-7.450)
[2021-10-12 05:08] LABS: ABG PO2 544.3 mm Hg (80.0-90.0)
[2021-10-12] MEDS: fentaNYL DRIP Premix 2,000 MCG/100 ML BAG IV SCH ×2 (06:24→18:39)
--- NOTE | 2021-10-12 09:26 | XRay Report ---
CHEST 1 VIEW 10/12/2021 7:27 AM INDICATION / CLINICAL INFORMATION: follow up respiratory failure. COMPARISON: 10/11/2021 FINDINGS: SUPPORT DEVICES: Tip of endotracheal tube is positioned approximately 4.5 cm above the diamond. HEART / MEDIASTINUM: Unchanged. There is a stent graft in the thoracic aorta. LUNGS / PLEURA: There are patchy pulmonary opacities bilaterally. There is mild improvement when comp ared to the prior study. No pneumothorax. There is calcified pleural plaque on the left. ADDITIONAL FINDINGS: No significant additional findings. IMPRESSION: 1. Mild improvement in bilateral pulmonary opacities. Signer Name: Loi Talbert MD Signed: 10/12/2021 9:21 AM Workstation Name: [id number]
[2021-10-12] MEDS ORDERED: AZITHROMYCIN/NS 500 MG/250 ML 500 MG/250 ML BAG IV ONE (10:00)
--- NOTE | 2021-10-12 10:16 | Consultation ---
History of Present Illness - Reason for Consult Consult date: 10/12/21 end stage renal disease - History of Present Illness Mr. Nelson is a 56yo with ESRD on HD who presented to the hospital as an OOH cardiac arrest. He receives HD TTS and dialyzed on Oct 11, 2021. Per records, patient collapsed at home after hemodialysis. They report that family and bystanders did not start CPR. It is unclear/uncertain how long elapsed between the patient collapsing, and arrival of EMS He arrived via EMS with a GCS of 3, with an endotracheal tube in place, receiving active CPR. EMS reported the patient had been pulseless for over half hour. They intubated the patient, defibrillated him multiple times, and treated him with standard ACLS interventions. Upon arrival to this emergency room, the patient presented with no pulse. Standard ACLS interventions were initiated. He develops multiple shockable rhythms, and he received multiple defibrillations. Amiodarone, lidocaine held given concern for hyperkalemia. After a prolonged resuscitation here in the emergency room, patient has return of spontaneous circulation. Past History Past Medical History: other (Not obtainable) Past Surgical History: Other (Not obtainable) Family history: other (Not obtainable) Medications and Allergies Allergies Allergy/AdvReac Type Severity Reaction Status Date / Time Unable to Assess Allergy Unverified 10/11/21 20:15 Active Meds: Active Medications Acetaminophen (Acetaminophen 650 Mg Rect Supp) 650 mg ND Q6H PRN PRN Reason: Pain MILD(1-3)/Fever >100.5/SAM Famotidine (Famotidine 20 Mg/2 Ml Inj) 20 mg IV BID OK Last Admin: 10/11/21 22:17 Dose: 20 mg Fentanyl (Fentanyl 100 Mcg/2 Ml Inj) 50 mcg IV Q10MIN PRN PRN Reason: ANALGESIA Hydrophilic Ointment (Lip Therapy Vaseline) 1 applic TP Q2HR PRN PRN Reason: Dry Lips Fentanyl Citrate (Fentanyl Drip Premix) 2,000 mcg in 100 mls @ 3.856 mls/hr IV TITR OK; Protocol Last Admin: 10/12/21 06:24 Dose: 2 mcg/kg/hr, 7.711 mls/hr Sodium Chloride (Nacl 0.9% 1000 Ml) 1,000 mls @ 125 mls/hr IV DIRECT OK Ceftriaxone Sodium (Rocephin/Ns 2 Gm/100 Ml) 2 gm in 100 mls @ 200 mls/hr IV Q24H OK; Protocol Azithromycin (Zithromax/Ns) 500 mg in 250 mls @ 250 mls/hr IV ONCE ONE; Protocol Stop: 10/12/21 10:59 Magnesium Hydroxide (Magnesium Hydroxide (Mom) Oral Liqd Udc) 30 ml PO Q4H PRN PRN Reason: Constipation Morphine Sulfate (Morphine 2 Mg/1 Ml Inj) 2 mg IV Q4H PRN PRN Reason: Pain, Moderate (4-6) Morphine Sulfate (Morphine 4 Mg/1 Ml Inj) 4 mg IV Q4H PRN PRN Reason: Pain , Severe (7-10) Multi-Ingred Cream/Lotion/Oil/Oint (Mineral Oil/Petrolatum, White Ophth Oint 3.5 Gm) 1 applic OU Q4HR PRN PRN Reason: Dry Eye(s) Ondansetron HCl (Ondansetron 4 Mg/2 Ml Inj) 4 mg IV Q8H PRN PRN Reason: Nausea And Vomiting Senna/Docusate Sodium (Sennosides/Docusate Sodium 8.6/50 Mg Tab) 1 tab FEEDTUBE BID OK Last Admin: 10/11/21 22:17 Dose: Not Given Sodium Chloride (Sodium Chloride 0.9% 10 Ml Flush Syringe) 10 ml IV BID OK Sodium Chloride (Sodium Chloride 0.9% 10 Ml Flush Syringe) 10 ml IV PRN PRN PRN Reason: LINE FLUSH Review of Systems ROS unobtainable: due to endotracheal tube Exam - Vital Signs Vital signs: Vital Signs Pulse BP Pulse Ox 97 H 166/79 100 10/11/21 19:10 10/11/21 19:10 10/11/21 19:10 - General Appearance General appearance: intubated EENT: ATNC, other (ETT in place) Neck: Present: Other (Cervical collar) Respiratory: Clear to Ascultation Heart: regular, S1S2 Gastrointestinal: Present: normal. Absent: tenderness, distended Integumentary: no rash, warm and dry Musculoskeletal: Present: other (no edema) Results - Lab Results 10/11/21 19:27 10/11/21 19:27 Most recent lab results ABG pH 7.423 pH Units (7.350-7.450) 10/12/21 04:53 ABG pCO2 41.1 mm Hg 10/12/21 04:53 ABG pO2 544.3 mm Hg (80.0-90.0) H 10/12/21 04:53 ABG HCO3 26.2 mmol/L (20.0-26.0) H 10/12/21 04:53 ABG O2 Saturation 99.6 % (95.0-99.0) H 10/12/21 04:53 Calcium 12.4 mg/dL (8.4-10.2) H* 10/11/21 19:27 Assessment and Plan Impression: * End stage renal disease * OOH cardiac arrest, prolonged down time * Anemia secondary to ESRD vs other Impression: * No urgent need for hemodialysis at this time * Will assess hemodynamic stablity tomorrow AM * Cardiology consultation pending * Vent management per pulmonary medicine * Pressors prn; maintain MAP >65 * Dose medications for renal function * AM labs
--- NOTE | 2021-10-12 10:31 | Consultation ---
History of Present Illness Consult date: 10/12/21 Consult reason: other (Cardiopulmonary arrest) History of present illness: Patient is a 56-year-old male who suffered an out of hospital cardiopulmonary arrest. His initial rhythm on contact with the EMS is unknown to me at this corrine e, but he was successfully resuscitated after about an hour in the field, brought to the emergency room. He currently is unresponsive, on the vent. He has atrial fibrillation with a well controlled ventricular rate in the 90s to 100s, and stable blood pressures. Cardiology consultation was requested. A review of this patient's recent history shows that he has coronary artery disease and an ascending aortic aneurysm. 6 months ago, a cardiac catheterization at [facility] showed a chronic total occlusion of the right coronary artery, and nonobstructive disease of the left coronary system. His left ventricular systolic ejection fraction was normal. He was recommended for medical therapy and risk factor modification for his coronary artery disease, and just last month he underwent endovascular graft repair of the ascending aortic aneurysm. His chest x-ray today shows the presence of sternal wires of an old thoracotomy, and the CT scan done on this presentation reports the presence of a bypass of the great vessels of the neck, suggesting that he may have had a thoracotomy following the endovascular repair. The atrial fibrillation on his current ECG is of unknown chronicity at this current time, there are no old ECGs available for comparison. I do not know if the patient was on oral anticoagulation prior to this admission. His INR is normal at 1.16, and his outpatient MAR does not list his medications. Past History Past Medical History: CAD, other (Ascending aortic aneurysm) Past Surgical History: Other (Ascending aortic aneurysm repair) Family history: other (Not obtainable) Medications and Allergies Allergies Allergy/AdvReac Type Severity Reaction Status Date / Time Unable to Assess Allergy Unverified 10/11/21 20:15 Active Meds: Active Medications Acetaminophen (Acetaminophen 650 Mg Rect Supp) 650 mg WI Q6H PRN PRN Reason: Pain MILD(1-3)/Fever >100.5/SAM Famotidine (Famotidine 20 Mg/2 Ml Inj) 20 mg IV BID OK Last Admin: 10/11/21 22:17 Dose: 20 mg Fentanyl (Fentanyl 100 Mcg/2 Ml Inj) 50 mcg IV Q10MIN PRN PRN Reason: ANALGESIA Hydrophilic Ointment (Lip Therapy Vaseline) 1 applic TP Q2HR PRN PRN Reason: Dry Lips Fentanyl Citrate (Fentanyl Drip Premix) 2,000 mcg in 100 mls @ 3.856 mls/hr IV TITR OK; Protocol Last Admin: 10/12/21 06:24 Dose: 2 mcg/kg/hr, 7.711 mls/hr Sodium Chloride (Nacl 0.9% 1000 Ml) 1,000 mls @ 125 mls/hr IV DIRECT OK Ceftriaxone Sodium (Rocephin/Ns 2 Gm/100 Ml) 2 gm in 100 mls @ 200 mls/hr IV Q24H OK; Protocol Azithromycin (Zithromax/Ns) 500 mg in 250 mls @ 250 mls/hr IV ONCE ONE; Protocol Stop: 10/12/21 10:59 Magnesium Hydroxide (Magnesium Hydroxide (Mom) Oral Liqd Udc) 30 ml PO Q4H PRN PRN Reason: Constipation Morphine Sulfate (Morphine 2 Mg/1 Ml Inj) 2 mg IV Q4H PRN PRN Reason: Pain, Moderate (4-6) Morphine Sulfate (Morphine 4 Mg/1 Ml Inj) 4 mg IV Q4H PRN PRN Reason: Pain , Severe (7-10) Multi-Ingred Cream/Lotion/Oil/Oint (Mineral Oil/Petrolatum, White Ophth Oint 3.5 Gm) 1 applic OU Q4HR PRN PRN Reason: Dry Eye(s) Ondansetron HCl (Ondansetron 4 Mg/2 Ml Inj) 4 mg IV Q8H PRN PRN Reason: Nausea And Vomiting Senna/Docusate Sodium (Sennosides/Docusate Sodium 8.6/50 Mg Tab) 1 tab FEEDTUBE BID [facility] Last Admin: 10/11/21 22:17 Dose: Not Given Sodium Chloride (Sodium Chloride 0.9% 10 Ml Flush Syringe) 10 ml IV BID [facility] Sodium Chloride (Sodium Chloride 0.9% 10 Ml Flush Syringe) 10 ml IV PRN PRN PRN Reason: LINE FLUSH Review of Systems ROS unobtainable: due to endotracheal tube, due to mental status Physical Examination Vital Signs Pulse BP Pulse Ox 97 H 166/79 100 10/11/21 19:10 10/11/21 19:10 10/11/21 19:10 General appearance: other (Unresponsive, on the vent) HEENT: Positive: Other (Pupils fixed) Neck: Positive: neck supple Cardiac: Positive: irregularly irregular Lungs: Positive: Decreased Breath Sounds Neuro: Positive: Other (Unresponsive, on the vent) Abdomen: Positive: Soft Male genitourinary: Positive: deferred Skin: Positive: Clear Extremities: Absent: edema Results 10/11/21 19:27 10/11/21 19:27 Cardiac Enzymes 10/11/21 Range/Units 19: AST 81 H (5-40) units/L Coagulation 10/11/21 Range/Units 19:27 PT 16.0 H (12.2-14.9) Sec. INR 1.16 H (0.87-1.13) APTT 54.4 H (24.2-36.6) Sec. Lipids 10/11/21 Range/Units 19:27 Triglycerides 92 (2-149) mg/dL Cholesterol 128 (50-199) mg/dL HDL Cholesterol 63 H (40-59) mg/dL Cholesterol/HDL Ratio 2.03 % CBC 10/11/21 Range/Units 19:27 WBC 8.8 (4.5-11.0) K/mm3 RBC 3.52 L (3.65-5.03) M/mm3 Hgb 9.5 L (11.8-15.2) gm/dl Hct 32.4 L (35.5-45.6) % Plt Count 166 (140-440) K/mm3 Comprehensive Metabolic Panel 10/11/21 Range/Units 19:27 Sodium 143 (137-145) mmol/L Potassium 3.2 L (3.6-5.0) mmol/L Chloride 100.3 (98-107) mmol/L Carbon Dioxide 24 (22-30) mmol/L BUN 15 (9-20) mg/dL Creatinine 3.3 H (0.8-1.3) mg/dL Glucose 159 H (75-100) mg/dL Calcium 12.4 H* (8.4-10.2) mg/dL AST 81 H (5-40) units/L ALT 39 (7-56) units/L Alkaline Phosphatase 184 H (35-129) units/L Total Protein 6.5 (6.3-8.2) g/dL Albumin 3.5 L (3.9-5) g/dL EKG interpretations - Telemetry EKG Rhythm: Atrial Fibrillation (With well-controlled ventricular rate) Assessment and Plan - Patient Problems (1) Cardiopulmonary arrest Current Visit: Yes Status: Acute Plan to address problem: 56-year-old man who presents following an out of hospital cardiopulmonary arrest. He has a history of coronary artery disease, primarily consisting of a stable chronic total occlusion of the right coronary artery. Left ventricular ejection fraction was assessed as normal on a cardiac catheterization 6 months ago. More recently, he had endovascular possible open repair of an a sending aortic aneurysm. A CT scan on this presentation shows that the endovascular repair is intact. Will continue supportive management, obtain an echocardiogram for left ventricular function reassessment. Patient's prognosis is poor in the setting of lung duration of resuscitation prior to hospital arrival. (2) Atrial fibrillation Current Visit: Yes Status: Acute Plan to address problem: Atrial fibrillation of unknown chronicity, we will continue rate control strateg y at this point. Patient will be on standard anticoagulation protocol for venous thromboembolism prophylaxis.
[2021-10-12] MEDS: cefTRIAXone/NS 2 GM/100 ML 2 GM/100 ML BAG IV SCH (10:38)
[2021-10-12] MEDS: SENNOSIDES/DOCUSATE SODIUM 8.6/50 MG TAB FEEDTUBE SCH ×2 (10:39→22:00)
[2021-10-12] MEDS: FAMOTIDINE 20 MG/2 ML INJ IV SCH ×2 (10:39→22:00)
--- NOTE | 2021-10-12 12:06 | Consultation ---
History of Present Illness - Reason for Consult Consult date: 10/12/21 PUI Requesting physician: DAMON TURNER - History of Present Illness The patient is a 56-year-old male admitted with cardiac arrest. Known to have a history of ESRD on HD, diabetes, hypertension, hyperlipidemia, indwelling thoracic aorta stent/vascular graft. Apparently, he collapsed at home after dialysis, reportedly pulseless for about an hour, intubated, defibrillated multiple times. Chest x-ray showed bilateral pulmonary opacities suggesting pneumonia versus pulmonary edema. Infectious diseases was consulted for possible COVID-19 PUI. Afebrile, WBC 8.8, platelets 166, lactic acidosis, calcium 12.4, troponin 0.3, blood cultures are in process. CT abdomen without any acute process. CTA chest showed patent thoracic aortic stent graft, cardiomegaly, small right pleural effusion. Review of Systems: reviewed in the chart, unable to obtain, minimize risk of transmission Past History Past Medical History: CAD, other (Ascending aortic aneurysm) Past Surgical History: Other (Ascending aortic aneurysm repair) Family history: other (Not obtainable) Medications and Allergies Allergies Allergy/AdvReac Type Severity Reaction Status Date / Time Unable to Assess Allergy Unverified 10/11/21 20:15 Active Meds: Active Medications Acetaminophen (Acetaminophen 650 Mg Rect Supp) 650 mg [place] Q6H PRN PRN Reason: Pain MILD(1-3)/Fever >100.5/SAM Famotidine (Famotidine 20 Mg/2 Ml Inj) 10 mg IV BID OK Fentanyl (Fentanyl 100 Mcg/2 Ml Inj) 50 mcg IV Q10MIN PRN PRN Reason: ANALGESIA Hydrophilic Ointment (Lip Therapy Vaseline) 1 applic TP Q2HR PRN PRN Reason: Dry Lips Fentanyl Citrate (Fentanyl Drip Premix) 2,000 mcg in 100 mls @ 3.856 mls/hr IV TITR OK; Protocol Last Admin: 10/12/21 06:24 Dose: 2 mcg/kg/hr, 7.711 mls/hr Sodium Chloride (Nacl 0.9% 1000 Ml) 1,000 mls @ 125 mls/hr IV DIRECT OK Ceftriaxone Sodium (Rocephin/Ns 2 Gm/100 Ml) 2 gm in 100 mls @ 200 mls/hr IV Q24H [place]; Protocol Last Admin: 10/12/21 10:38 Dose: 200 mls/hr Magnesium Hydroxide (Magnesium Hydroxide (Mom) Oral Liqd Udc) 30 ml PO Q4H PRN PRN Reason: Constipation Metoprolol Tartrate (Metoprolol Tartrate 5 Mg/5 Ml Inj) 2.5 mg IV Q6HR [facility] Morphine Sulfate (Morphine 2 Mg/1 Ml Inj) 2 mg IV Q4H PRN PRN Reason: Pain, Moderate (4-6) Morphine Sulfate (Morphine 4 Mg/1 Ml Inj) 4 mg IV Q4H PRN PRN Reason: Pain , Severe (7-10) Multi-Ingred Cream/Lotion/Oil/Oint (Mineral Oil/Petrolatum, White Ophth Oint 3.5 Gm) 1 applic OU Q4HR PRN PRN Reason: Dry Eye(s) Ondansetron HCl (Ondansetron 4 Mg/2 Ml Inj) 4 mg IV Q8H PRN PRN Reason: Nausea And Vomiting Senna/Docusate Sodium (Sennosides/Docusate Sodium 8.6/50 Mg Tab) 1 tab FEEDTUBE BID [facility] Last Admin: 10/12/21 10:39 Dose: Not Given Sodium Chloride (Sodium Chloride 0.9% 10 Ml Flush Syringe) 10 ml IV BID [facility] Last Admin: 10/12/21 10:39 Dose: 10 ml Sodium Chloride (Sodium Chloride 0.9% 10 Ml Flush Syringe) 10 ml IV PRN PRN PRN Reason: LINE FLUSH Physical Examination - Physical Exam Narrative exam: Physical Exam (reviewed in chart to minimize risk of transmission) Constitutional: deferred Head, Ears, Nose: deferred Eyes: deferred Neck: deferred Oral: deferred Cardiovascular: deferred Respiratory: deferred GI: deferred Musculoskeletal: deferred Skin: deferred Hem/Lymphatic: deferred Psych: deferred Neurological: deferred - Constitutional Vitals: Vital Signs Temp Pulse Resp BP Pulse Ox 97.7 F 95 H 16 154/87 100 10/11/21 20:12 10/12/21 09:01 10/12/21 09:01 10/12/21 09:01 10/12/21 09:01 Temperature -Last 24 Hours Temperature 97.7 F Results - Labs CBC & Chem 7: 10/11/21 19:27 10/11/21 19:27 Labs: Abnormal lab results 10/11/21 10/11/21 10/11/21 Range/Units 19:27 19:27 19:27 RBC 3.52 L (3.65-5.03) M/mm3 Hgb 9.5 L (11.8-15.2) gm/dl Hct 32.4 L (35.5-45.6) % MCH 27 L (28-32) pg MCHC 29 L (32-34) % RDW 20.8 H (13.2-15.2) % Seg Neuts % (Manual) 93.0 H (40.0-70.0) % Lymphocytes % (Manual) 1.0 L (13.4-35.0) % Seg Neutrophils # Man 8.2 H (1.8-7.7) K/mm3 Lymphocytes # (Manual) 0.1 L (1.2-5.4) K/mm3 PT 16.0 H (12.2-14.9) Sec. INR 1.16 H (0.87-1.13) APTT 54.4 H (24.2-36.6) Sec. ABG pO2 (80.0-90.0) mm Hg ABG HCO3 (20.0-26.0) mmol/L ABG O2 Saturation (95.0-99.0) % ABG Hemoglobin (14.0-18.0) gm/dl Potassium (3.6-5.0) mmol/L Creatinine (0.8-1.3) mg/dL Glucose (75-100) mg/dL Lactic Acid 6.90 H* (0.7-2.0) mmol/L Calcium (8.4-10.2) mg/dL AST (5-40) units/L Alkaline Phosphatase (35-129) units/L Total Creatine Kinase (55-170) units/L Troponin T (0.00-0.029) ng/mL Albumin (3.9-5) g/dL HDL Cholesterol (40-59) mg/dL Salicylates (2.8-20.0) mg/dL Acetaminophen (10.0-30.0) ug/mL 10/11/21 10/11/21 10/11/21 Range/Units 19:27 19:27 19:27 RBC (3.65-5.03) M/mm3 Hgb (11.8-15.2) gm/dl Hct (35.5-45.6) % MCH (28-32) pg MCHC (32-34) % RDW (13.2-15.2) % Seg Neuts % (Manual) (40.0-70.0) % Lymphocytes % (Manual) (13.4-35.0) % Seg Neutrophils # Man (1.8-7.7) K/mm3 Lymphocytes # (Manual) (1.2-5.4) K/mm3 PT (12.2-14.9) Sec. INR (0.87-1.13) APTT (24.2-36.6) Sec. ABG pO2 (80.0-90.0) mm Hg ABG HCO3 (20.0-26.0) mmol/L ABG O2 Saturation (95.0-99.0) % ABG Hemoglobin (14.0-18.0) gm/dl Potassium 3.2 L (3.6-5.0) mmol/L Creatinine 3.3 H (0.8-1.3) mg/dL Glucose 159 H (75-100) mg/dL Lactic Acid (0.7-2.0) mmol/L Calcium 12.4 H* (8.4-10.2) mg/dL AST 81 H (5-40) units/L Alkaline Phosphatase 184 H (35-129) units/L Total Creatine Kinase 43 L (55-170) units/L Troponin T 0.340 H* (0.00-0.029) ng/mL Albumin 3.5 L (3.9-5) g/dL HDL Cholesterol 63 H (40-59) mg/dL Salicylates < 0.3 L (2.8-20.0) mg/dL Acetaminophen 5.0 L (10.0-30.0) ug/mL 10/12/21 10/12/21 10/12/21 Range/Units 01:42 04:53 07:35 RBC (3.65-5.03) M/mm3 Hgb (11.8-15.2) gm/dl Hct (35.5-45.6) % MCH (28-32) pg MCHC (32-34) % RDW (13.2-15.2) % Seg Neuts % (Manual) (40.0-70.0) % Lymphocytes % (Manual) (13.4-35.0) % Seg Neutrophils # Man (1.8-7.7) K/mm3 Lymphocytes # (Manual) (1.2-5.4) K/mm3 PT (12.2-14.9) Sec. INR (0.87-1.13) APTT (24.2-36.6) Sec. ABG pO2 544.3 H (80.0-90.0) mm Hg ABG HCO3 26.2 H (20.0-26.0) mmol/L ABG O2 Saturation 99.6 H (95.0-99.0) % ABG Hemoglobin 9.7 L (14.0-18.0) gm/dl Potassium (3.6-5.0) mmol/L Creatinine (0.8-1.3) mg/dL Glucose (75-100) mg/dL Lactic Acid 2.70 H* 2.50 H* (0.7-2.0) mmol/L Calcium (8.4-10.2) mg/dL AST (5-40) units/L Alkaline Phosphatase (35-129) units/L Total Creatine Kinase (55-170) units/L Troponin T (0.00-0.029) ng/mL Albumin (3.9-5) g/dL HDL Cholesterol (40-59) mg/dL Salicylates (2.8-20.0) mg/dL Acetaminophen (10.0-30.0) ug/mL - Imaging and Cardiology Chest x-ray: report reviewed, image reviewed (no significant pneumonia seen) Assessment and Plan Cultures: SARS CoV2 PCR: Pending 10/11/2021 blood culture: In process A/P: 56-year-old male admitted with cardiac arrest. Known to have a history of ESRD on HD, diabetes, hypertension, hyperlipidemia, indwelling thoracic aorta stent/vascular graft. Apparently, he collapsed at home after dialysis, reportedly pulseless for about an hour, intubated, defibrillated multiple times: #Bilateral pneumonia versus pulmonary edema #Acute hypoxic respiratory failure: On the vent #Acute encephalopathy, s/p cardiac arrest #ESRD on HD: Renally adjust antibiotics Recs: -Follow-up COVID-19 PCR, if positive, start steroids. Not a candidate for remdesivir. -Hold off on antibiotics for now, no fever or leukocytosis. If patient develops fever, start empiric cefepime, vancomycin Meena Duggan MD, FACP, [facility] ([facility] O: [phone] F: [phone]
[2021-10-12] MEDS: METOPROLOL TARTRATE 5 MG/5 ML INJ IV SCH ×2 (12:41→18:41)
--- NOTE | 2021-10-12 12:56 | Consultation ---
History of Present Illness Consult date: 10/12/21 Requesting physician: DAMON TURNER Reason for consult: other (Cardiopulmonary arrest with ROSC) History of present illness: PATIENT IS INTUABTED AND UNABLE TO GIVE ANY INFORMATION. HISTORY IS PER MEDICAL RECORDS 56-year-old male brought into the emergency room by EMS in cardiac arrest. Patient has a known history of end-stage renal disease on dialysis, diabetes mellitus, hyperlipidemia and hypertension, history of thoracic aorta stent graft placement. Patient was said to have collapsed at home after dialysis today. No CPR was started by the family or bystanders. EMS reports to myself that the patient has been pulseless for over half hour. They intubated the patient, defibrillated him multiple times, and treated him with standard ACLS interventions. Upon arrival to this emergency room, the patient presents with a GCS of 3, and no pulse. Standard ACLS interventions are initiated. He has aggressive CPR, and appropriate medications. He develops multiple shockable rhythms, and he received multiple defibrillations. Amiodarone, lidocaine held given concern for hyperkalemia. Work-up in the emergency room today, chest x-ray reveals nonspecific bilateral pulmonary opacities which could represent pneumonia or edema. CT of the abdomen and pelvis was unremarkable. Lab was significant for lactic acidosis, hypercalcemia of 12.4, creatinine of 3.3, hypokalemia of 3.2. A critical care consult was placed. Patient seen and examined. Vitals, labs, medications, chart and imaging reviewed. he is unresponsive, C-collar in place, orally intubated toMVS On Fentanyl infusion, has a right femoral CVL and a Barlow catheter. MVS: PEEP+6/40% Cardiology consult notes reviewed -6 months ago, a cardiac catheterization at [facility] showed a chronic total occlusion of the right coronary artery, and nonobstructive disease of the left coronary system. His left ventricular systolic ejection fraction was normal. He was recommended for medical therapy and risk factor modification for his coronary artery disease, and just last month he underwent endovascular graft repair of the ascending aortic aneurysm. Past History Past Medical History: CAD, other (Ascending aortic aneurysm) Past Surgical History: Other (Ascending aortic aneurysm repair) Family history: other (Not obtainable) Medications and Allergies Allergies Allergy/AdvReac Type Severity Reaction Status Date / Time Unable to Assess Allergy Unverified 10/11/21 20:15 Active Meds: Active Medications Acetaminophen (Acetaminophen 650 Mg Rect Supp) 650 mg [place] Q6H PRN PRN Reason: Pain MILD(1-3)/Fever >100.5/SAM Famotidine (Famotidine 20 Mg/2 Ml Inj) 10 mg IV BID [facility] Fentanyl (Fentanyl 100 Mcg/2 Ml Inj) 50 mcg IV Q10MIN PRN PRN Reason: ANALGESIA Hydrophilic Ointment (Lip Therapy Vaseline) 1 applic TP Q2HR PRN PRN Reason: Dry Lips Fentanyl Citrate (Fentanyl Drip Premix) 2,000 mcg in 100 mls @ 3.856 mls/hr IV TITR OK; Protocol Last Admin: 10/12/21 06:24 Dose: 2 mcg/kg/hr, 7.711 mls/hr Sodium Chloride (Nacl 0.9% 1000 Ml) 1,000 mls @ 125 mls/hr IV DIRECT OK Ceftriaxone Sodium (Rocephin/Ns 2 Gm/100 Ml) 2 gm in 100 mls @ 200 mls/hr IV Q24H [facility]; Protocol Last Admin: 10/12/21 10:38 Dose: 200 mls/hr Magnesium Hydroxide (Magnesium Hydroxide (Mom) Oral Liqd Udc) 30 ml PO Q4H PRN PRN Reason: Constipation Metoprolol Tartrate (Metoprolol Tartrate 5 Mg/5 Ml Inj) 2.5 mg IV Q6HR [facility] Morphine Sulfate (Morphine 2 Mg/1 Ml Inj) 2 mg IV Q4H PRN PRN Reason: Pain, Moderate (4-6) Morphine Sulfate (Morphine 4 Mg/1 Ml Inj) 4 mg IV Q4H PRN PRN Reason: Pain , Severe (7-10) Multi-Ingred Cream/Lotion/Oil/Oint (Mineral Oil/Petrolatum, White Ophth Oint 3.5 Gm) 1 applic OU Q4HR PRN PRN Reason: Dry Eye(s) Ondansetron HCl (Ondansetron 4 Mg/2 Ml Inj) 4 mg IV Q8H PRN PRN Reason: Nausea And Vomiting Senna/Docusate Sodium (Sennosides/Docusate Sodium 8.6/50 Mg Tab) 1 tab FEEDTUBE BID [facility] Last Admin: 10/12/21 10:39 Dose: Not Given Sodium Chloride (Sodium Chloride 0.9% 10 Ml Flush Syringe) 10 ml IV BID [facility] Last Admin: 10/12/21 10:39 Dose: 10 ml Sodium Chloride (Sodium Chloride 0.9% 10 Ml Flush Syringe) 10 ml IV PRN PRN PRN Reason: LINE FLUSH Review of Systems ROS unobtainable: due to endotracheal tube, due to mental status Physical Examination Vital signs: Vital Signs Pulse BP Pulse Ox 97 H 166/79 100 10/11/21 19:10 10/11/21 19:10 10/11/21 19:10 General appearance: no acute distress, other (rifding set rate on MVS, facial bruising, C-collar in palce) Eyes: non-icteric, other (right periorbital swelling) Neck: other (C-collar) Effort: normal Ascultation: Bilateral: diminished breath sounds, rhonchi Cardiovascular: irregular rhythm, other (S1,S2) Gastrointestinal: normoactive bowel sounds, soft, non-tender, other (Barlow catheter) Integumentary: normal, other (right femoral CVL) Extremities: no cyanosis, no edema, pulses normal unable to assess Results - Laboratory Findings CBC and BMP: 10/11/21 19:27 10/11/21 19:27 ABG ABG pH 7.423 pH Units (7.350-7.450) 10/12/21 04:53 ABG pCO2 41.1 mm Hg 10/12/21 04:53 ABG pO2 544.3 mm Hg (80.0-90.0) H 10/12/21 04:53 ABG O2 Saturation 99.6 % (95.0-99.0) H 10/12/21 04:53 PT/INR, D-dimer PT 16.0 Sec. (12.2-14.9) H 10/11/21 19:27 INR 1.16 (0.87-1.13) H 10/11/21 19:27 Abnormal lab findings: Abnormal Labs 10/11/21 10/11/21 10/11/21 19:27 19:27 19:27 RBC 3.52 L Hgb 9.5 L Hct 32.4 L MCH 27 L MCHC 29 L RDW 20.8 H Seg Neuts % (Manual) 93.0 H Lymphocytes % (Manual) 1.0 L Seg Neutrophils # Man 8.2 H Lymphocytes # (Manual) 0.1 L PT 16.0 H INR 1.16 H APTT 54.4 H ABG pO2 ABG HCO3 ABG O2 Saturation ABG Hemoglobin Potassium Creatinine Glucose Lactic Acid 6.90 H* Calcium AST Alkaline Phosphatase Total Creatine Kinase Troponin T Albumin HDL Cholesterol Salicylates Acetaminophen 10/11/21 10/11/21 10/11/21 19:27 19:27 19:27 RBC Hgb Hct MCH MCHC RDW Seg Neuts % (Manual) Lymphocytes % (Manual) Seg Neutrophils # Man Lymphocytes # (Manual) PT INR APTT ABG pO2 ABG HCO3 ABG O2 Saturation ABG Hemoglobin Potassium 3.2 L Creatinine 3.3 H Glucose 159 H Lactic Acid Calcium 12.4 H* AST 81 H Alkaline Phosphatase 184 H Total Creatine Kinase 43 L Troponin T 0.340 H* Albumin 3.5 L HDL Cholesterol 63 H Salicylates < 0.3 L Acetaminophen 5.0 L 10/12/21 10/12/21 10/12/21 01:42 04:53 07:35 RBC Hgb Hct MCH MCHC RDW Seg Neuts % (Manual) Lymphocytes % (Manual) Seg Neutrophils # Man Lymphocytes # (Manual) PT INR APTT ABG pO2 544.3 H ABG HCO3 26.2 H ABG O2 Saturation 99.6 H ABG Hemoglobin 9.7 L Potassium Creatinine Glucose Lactic Acid 2.70 H* 2.50 H* Calcium AST Alkaline Phosphatase Total Creatine Kinase Troponin T Albumin HDL Cholesterol Salicylates Acetaminophen - Diagnostic Findings Chest x-ray: image reviewed (Aortic graft, poststrnotomy scar, bilateral alveolar infiltrates) CT scan - chest: report reviewed, image reviewed Additional studies: CT head- negative for acute intracranial bleeding, infarct Assessment and Plan Cardiopulmonary arrest, prolonged downtime, with ROSC Acute hypoxemic respiratory failure, on MVS COVID-19 positive ESRD on HD Bilateral alveolar infiltrates Atrial fibrillation - VAP bundle addressed, aspiration precautions - Titrate supplemental oxygen to keep SpO2 88-90% - Bronchodilators with pulmonary hygiene per RT - Accuchecks with glycemic control per SSI (While critically ill target blood glucose of 140-180 mg/dL; avoid hypoglycemia) - avoid nephrotoxins, renally dose all medications, supportive HD/UF per Renal service -On Fentanyl- will hold so as to allow for accurate assessment of neurologic function - unable to get targeted temperature management- not available -Stress ulcer prophylaxis- Famotidine -VTE prophylaxis-Heparin - Monitor hemodynamics closely -Get procalcitonin levels, if normal will recommend that antibiotics be discontinued. -Follow up on Echocardiogram COVID SPECIFIC INTERVENTIONS - Not a candidate for Remdesivir - start Dexemethasone - Monitor inflammatory markers per facility protocol - ferritin, Ddimer, CRP - Anticoagulation per facility protocol- for now Heparin prophylaxis dosing - Continue contact and airborne isolation With the prolonged time from cardiopulmonary arrest to ROSC, patient's prognosis re recovery of meaningful neurologic function is poor. CONDITION: CRITICAL PROGNOSIS: GUARDED CODE STATUS: FULL CODE The high probability of a clinically significant, sudden or life-threatening deterioration of the [respiratory, cardiovascular, neurologic ] system(s) required my full and direct attention, intervention and personal management. The aggregate critical care time was [35] minutes without overlap. Time includes spent on; [x] Data Review and interpretation [x] Patient assessment and monitoring of vital signs [x] Documentation [x] Medication orders and management
--- NOTE | 2021-10-12 17:27 | Progress Note ---
Assessment and Plan Critical care statement. We will be making 2079 . INR goal Creatinine Increasing Patient anticoagulated The high probability OF a clinically significant sudden or life-threatening deterioration of the cardiorespiratory system and endocrine system required my full and direct attention, intervention and postoperative management. The aggr egate medical care time was 40 minutes. The time is in addition to time spent performing reported procedures but includes the followin: Data review and interpretation 2: Patient assessment and monitoring of vital signs 3: Documentation 4:: Medication orders and management Assessment and Plan - Patient Problems (1) Cardiac arrest Current Visit: Yes Status: Acute Plan to address problem: Patient is status post successful resuscitation. Currently intubated and sedated. Web Marketing Specialist consult appreciated Patient is probably anoxic encephalopathy Poor prognosis (2) End stage renal disease Current Visit: Yes Status: Acute Plan to address problem: Continue hemodialysis as tolerated. (3) Anoxic encephalopathy Patient has a high likelihood of anoxic encephalopathy Patient has been down for 1 hour (4) Pneumonia Current Visit: Yes Status: Acute Plan to address problem: Patient placed on empiric IV antibiotics. Will also check for COVID-19. (5) Lactic acidosis Current Visit: Yes Status: Acute Plan to address problem: Possibly secondary to the cardiac arrest. Will monitor chemistry. (6) Elevated troponin Current Visit: Yes Status: Acute Plan to address problem: Possibly troponin leak versus cardiac resuscitation. Will monitor troponin levels. We await further evaluation by cardiology. (7) DVT prophylaxis Current Visit: Yes Status: Acute Plan to address problem: Patient placed on subcutaneous heparin. (8) Full code status Current Visit: Yes Advance care planning Disease education conducted, care plan discussed, diagnosis discussed, prognosis discussed, patient is full code discussed with family and family members acknowledge understanding and agreement. Care plan +30 minutes. Discussed the case with his brother. Subjective Date of service: 10/12/21 Principal diagnosis: S/p cardiac arrest and eval Interval history: 56-year-old male brought into the emergency room by EMS in cardiac arrest. Most information was obtained from the ER staff as patient is already intubated and sedated. Patient appears to have known history of end-stage renal disease on dialysis, diabetes mellitus, hyperlipidemia and hypertension, history of thoracic aorta stent graft placement. Patient was said to have collapsed at home after dialysis today. No CPR was started by the family or bystanders. EMS indicates the patient was pulseless for about an hour. He was intubated, defibrillated multiple times according to ACLS protocol. After prolonged resuscitation in the emergency room upon arrival patient had return of spontaneous circulation. Work-up in the emergency room today, chest x-ray reveals nonspecific bilateral pulmonary opacities which could represent pneumonia or edema. CT of the abdomen and pelvis was unremarkable. Lab was significant for lactic acidosis, hypercalcemia of 12.4, creatinine of 3.3, hypokalemia of 3.2. 10/12/2021 Patient has high probability of anoxic encephalopathy Bilateral pneumonia Broad-spectrum IV antibiotics 's pressors Rule out COVID + Objective - Exam Narrative Exam: Patient is intubated and on vent - Constitutional Vitals: Vital Signs - 12hr 10/12/21 10/12/21 10/12/21 05:31 06:01 06:31 Pulse Rate 97 H 102 H 93 H Respiratory 15 19 18 Rate Blood Pressure 153/83 153/83 170/86 O2 Sat by Pulse 100 100 100 Oximetry 10/12/21 10/12/21 10/12/21 07:01 08:01 08:30 Pulse Rate 89 94 H 93 H Respiratory 18 17 16 Rate Blood Pressure 161/92 145/80 145/80 O2 Sat by Pulse 100 100 100 Oximetry 10/12/21 10/12/21 10/12/21 08:57 09:01 09:31 Pulse Rate 96 H 95 H 97 H Respiratory 16 15 Rate Blood Pressure 154/87 154/87 149/89 O2 Sat by Pulse 100 100 100 Oximetry 10/12/21 10/12/21 10/12/21 10:01 10:31 11:01 Pulse Rate 95 H 90 93 H Respiratory 16 16 17 Rate Blood Pressure 157/92 149/87 146/83 O2 Sat by Pulse 100 100 100 Oximetry 10/12/21 10/12/21 10/12/21 11:31 12:01 12:31 Pulse Rate 89 89 102 H Respiratory 18 16 22 Rate Blood Pressure 147/91 151/82 147/82 O2 Sat by Pulse 100 100 100 Oximetry 10/12/21 10/12/21 10/12/21 13:01 13:31 14:01 Pulse Rate 95 H 102 H 101 H Respiratory 16 16 16 Rate Blood Pressure 151/81 150/84 147/90 O2 Sat by Pulse 100 100 100 Oximetry 10/12/21 16:38 Pulse Rate 99 H Respiratory Rate Blood Pressure 152/88 O2 Sat by Pulse 100 Oximetry General appearance: Present: no acute distress, well-nourished - EENT Eyes: PERRL, EOM intact ENT: hearing intact, clear oral mucosa Ears: bilateral: normal - Neck Neck: supple, normal ROM - Respiratory Respiratory effort: normal Respiratory: bilateral: CTA - Breasts Breasts: normal - Cardiovascular Heart rate: 78 Rhythm: regular Heart Sounds: Present: S1 & S2. Absent: gallop, rub Extremities: pulses intact, No edema, normal color, Full ROM - Gastrointestinal General gastrointestinal: Present: soft, non-tender, non-distended, normal bowel sounds - Genitourinary Male genitourinary: normal - Integumentary Integumentary: clear, warm, dry - Musculoskeletal Musculoskeletal: 1, strength equal bilaterally - Neurologic Neurologic: other (No movements) - Psychiatric Psychiatric: other (Unresponsive) - Allied health notes Allied health notes reviewed: nursing, case management - Labs CBC & Chem 7: 10/13/21 07:23 10/13/21 07:23 Labs: Abnormal lab results 10/11/21 10/11/21 10/11/21 Range/Units 19:27 19:27 19:27 RBC 3.52 L (3.65-5.03) M/mm3 Hgb 9.5 L (11.8-15.2) gm/dl Hct 32.4 L (35.5-45.6) % MCH 27 L (28-32) pg MCHC 29 L (32-34) % RDW 20.8 H (13.2-15.2) % Seg Neuts % (Manual) 93.0 H (40.0-70.0) % Lymphocytes % (Manual) 1.0 L (13.4-35.0) % Seg Neutrophils # Man 8.2 H (1.8-7.7) K/mm3 Lymphocytes # (Manual) 0.1 L (1.2-5.4) K/mm3 PT 16.0 H (12.2-14.9) Sec. INR 1.16 H (0.87-1.13) APTT 54.4 H (24.2-36.6) Sec. ABG pO2 (80.0-90.0) mm Hg ABG HCO3 (20.0-26.0) mmol/L ABG O2 Saturation (95.0-99.0) % ABG Hemoglobin (14.0-18.0) gm/dl Potassium (3.6-5.0) mmol/L Creatinine (0.8-1.3) mg/dL Glucose (75-100) mg/dL Lactic Acid 6.90 H* (0.7-2.0) mmol/L Calcium (8.4-10.2) mg/dL AST (5-40) units/L Alkaline Phosphatase (35-129) units/L Total Creatine Kinase (55-170) units/L Troponin T (0.00-0.029) ng/mL Albumin (3.9-5) g/dL HDL Cholesterol (40-59) mg/dL Salicylates (2.8-20.0) mg/dL Acetaminophen (10.0-30.0) ug/mL Coronavirus (PCR) (Negative) 10/11/21 10/11/21 10/11/21 Range/Units 19:27 19:27 19:27 RBC (3.65-5.03) M/mm3 Hgb (11.8-15.2) gm/dl Hct (35.5-45.6) % MCH (28-32) pg MCHC (32-34) % RDW (13.2-15.2) % Seg Neuts % (Manual) (40.0-70.0) % Lymphocytes % (Manual) (13.4-35.0) % Seg Neutrophils # Man (1.8-7.7) K/mm3 Lymphocytes # (Manual) (1.2-5.4) K/mm3 PT (12.2-14.9) Sec. INR (0.87-1.13) APTT (24.2-36.6) Sec. ABG pO2 (80.0-90.0) mm Hg ABG HCO3 (20.0-26.0) mmol/L ABG O2 Saturation (95.0-99.0) % ABG Hemoglobin (14.0-18.0) gm/dl Potassium 3.2 L (3.6-5.0) mmol/L Creatinine 3.3 H (0.8-1.3) mg/dL Glucose 159 H (75-100) mg/dL Lactic Acid (0.7-2.0) mmol/L Calcium 12.4 H* (8.4-10.2) mg/dL AST 81 H (5-40) units/L Alkaline Phosphatase 184 H (35-129) units/L Total Creatine Kinase 43 L (55-170) units/L Troponin T 0.340 H* (0.00-0.029) ng/mL Albumin 3.5 L (3.9-5) g/dL HDL Cholesterol 63 H (40-59) mg/dL Salicylates < 0.3 L (2.8-20.0) mg/dL Acetaminophen 5.0 L (10.0-30.0) ug/mL Coronavirus (PCR) (Negative) 10/12/21 10/12/21 10/12/21 Range/Units 01:42 04:53 07:35 RBC (3.65-5.03) M/mm3 Hgb (11.8-15.2) gm/dl Hct (35.5-45.6) % MCH (28-32) pg MCHC (32-34) % RDW (13.2-15.2) % Seg Neuts % (Manual) (40.0-70.0) % Lymphocytes % (Manual) (13.4-35.0) % Seg Neutrophils # Man (1.8-7.7) K/mm3 Lymphocytes # (Manual) (1.2-5.4) K/mm3 PT (12.2-14.9) Sec. INR (0.87-1.13) APTT (24.2-36.6) Sec. ABG pO2 544.3 H (80.0-90.0) mm Hg ABG HCO3 26.2 H (20.0-26.0) mmol/L ABG O2 Saturation 99.6 H (95.0-99.0) % ABG Hemoglobin 9.7 L (14.0-18.0) gm/dl Potassium (3.6-5.0) mmol/L Creatinine (0.8-1.3) mg/dL Glucose (75-100) mg/dL Lactic Acid 2.70 H* 2.50 H* (0.7-2.0) mmol/L Calcium (8.4-10.2) mg/dL AST (5-40) units/L Alkaline Phosphatase (35-129) units/L Total Creatine Kinase (55-170) units/L Troponin T (0.00-0.029) ng/mL Albumin (3.9-5) g/dL HDL Cholesterol (40-59) mg/dL Salicylates (2.8-20.0) mg/dL Acetaminophen (10.0-30.0) ug/mL Coronavirus (PCR) (Negative) 10/12/21 Range/Units Unknown RBC (3.65-5.03) M/mm3 Hgb (11.8-15.2) gm/dl Hct (35.5-45.6) % MCH (28-32) pg MCHC (32-34) % RDW (13.2-15.2) % Seg Neuts % (Manual) (40.0-70.0) % Lymphocytes % (Manual) (13.4-35.0) % Seg Neutrophils # Man (1.8-7.7) K/mm3 Lymphocytes # (Manual) (1.2-5.4) K/mm3 PT (12.2-14.9) Sec. INR (0.87-1.13) APTT (24.2-36.6) Sec. ABG pO2 (80.0-90.0) mm Hg ABG HCO3 (20.0-26.0) mmol/L ABG O2 Saturation (95.0-99.0) % ABG Hemoglobin (14.0-18.0) gm/dl Potassium (3.6-5.0) mmol/L Creatinine (0.8-1.3) mg/dL Glucose (75-100) mg/dL Lactic Acid (0.7-2.0) mmol/L Calcium (8.4-10.2) mg/dL AST (5-40) units/L Alkaline Phosphatase (35-129) units/L Total Creatine Kinase (55-170) units/L Troponin T (0.00-0.029) ng/mL Albumin (3.9-5) g/dL HDL Cholesterol (40-59) mg/dL Salicylates (2.8-20.0) mg/dL Acetaminophen (10.0-30.0) ug/mL Coronavirus (PCR) Positive A (Negative) HEART Score - HEART Score Troponin: Troponin T 0.340 ng/mL (0.00-0.029) H* 10/11/21 19:27
--- NOTE | 2021-10-13 03:11 | XRay Report ---
CHEST 1 VIEW 10/13/2021 2:00 AM INDICATION / CLINICAL INFORMATION: follow up respiratory failure. COMPARISON: 10/12/2021 FINDINGS: SUPPORT DEVICES: None. HEART / MEDIASTINUM: No significant abnormality. LUNGS / PLEURA: Diffuse bilateral pulmonary opacities persist No pneumothorax. Signer Name: Rosendo Clarke MD Signed: 10/13/2021 3:07 AM Workstation Name: [id number]
[2021-10-13 04:03] LABS: ABG Base Excess 1.6 mmol/L (-2.0-3.0); ABG Methemoglobin 0.6 % (0.0-1.5); ABG Oxygen Saturation 98.8 % (95.0-99.0); ABG PCO2 40.1 mm Hg; ABG PH 7.43 pH Units (7.350-7.450); ABG PO2 146.5 mm Hg (80.0-90.0)
[2021-10-13] MEDS: METOPROLOL TARTRATE 5 MG/5 ML INJ IV SCH ×2 (06:00)
--- NOTE | 2021-10-13 06:06 | Progress Note ---
Assessment and Plan Cardiopulmonary arrest, prolonged downtime, with ROSC Acute hypoxemic respiratory failure, on MVS COVID-19 positive ESRD on HD Bilateral alveolar infiltrates Atrial fibrillation Hold Fentanyl and perform SAT to assess neurologic function. Get neuroimaging after 72 hours of the cardiac arrest to evaluate the degree of anoxic injury if any Enteric nutritional support - VAP bundle addressed, aspiration precautions - Continue to titrate supplemental oxygen to keep SpO2 88-90% - Bronchodilators with pulmonary hygiene per RT - Accuchecks with glycemic control per SSI (While critically ill target blood glucose of 140-180 mg/dL; avoid hypoglycemia) - avoid nephrotoxins, renally dose all medications, supportive HD/UF per Renal service -Stress ulcer prophylaxis- Famotidine -VTE prophylaxis-Heparin - Monitor hemodynamics closely -Procalcitonin levels( ordered) if normal will recommend that antibiotics be discontinued. COVID SPECIFIC INTERVENTIONS - Not a candidate for Remdesivir - Continue Dexemethasone - Monitor inflammatory markers per facility protocol - ferritin, Ddimer, CRP - Anticoagulation per facility protocol- for now Heparin prophylaxis dosing - Continue contact and airborne isolation All other care per attending and consulting physicians With the prolonged time from cardiopulmonary arrest to ROSC, patient's prognosis re recovery of meaningful neurologic function remains poor. CONDITION: CRITICAL PROGNOSIS: GUARDED CODE STATUS: FULL CODE The high probability of a clinically significant, sudden or life-threatening deterioration of the [respiratory, cardiovascular, neurologic ] system(s) requ ired my full and direct attention, intervention and personal management. The aggregate critical care time was [35] minutes without overlap. Time includes spent on; [x] Data Review and interpretation [x] Patient assessment and monitoring of vital signs [x] Documentation [x] Medication orders and management Subjective Date of service: 10/13/21 Interval history: Follow up for Cardiopulmonary arrest, prolonged downtime, with ROSC;Acute hypoxemic respiratory failure, on MVS;COVID-19 positive ESRD on HD;Bilateral alveolar infiltrates;Atrial fibrillation Seen and examined. Vitals, labs, medications, chart and imaging reviewed. Discussed with respiratory and nursing staff. No adverse overnight events reported. Remains critically ill, orally intubated on MVS Objective Vital Signs - 12hr 10/12/21 10/12/21 10/12/21 18:31 18:47 19:01 Pulse Rate 103 H 104 H 91 H Respiratory 16 16 16 Rate Blood Pressure 149/87 149/87 161/84 O2 Sat by Pulse 100 100 100 Oximetry 10/12/21 10/12/21 10/12/21 19:15 19:31 20:01 Pulse Rate 103 H 97 H 102 H Respiratory 16 16 Rate Blood Pressure 149/87 154/91 150/87 O2 Sat by Pulse 100 100 100 Oximetry 10/12/21 10/12/21 10/12/21 20:31 21:01 21:31 Pulse Rate 112 H 97 H 109 H Respiratory 16 16 16 Rate Blood Pressure 159/96 165/89 158/102 O2 Sat by Pulse 100 100 100 Oximetry 10/12/21 10/12/21 10/12/21 22:01 22:31 23:01 Pulse Rate 114 H 111 H 115 H Respiratory 16 16 16 Rate Blood Pressure 172/85 177/96 176/95 O2 Sat by Pulse 100 100 100 Oximetry 10/12/21 10/12/21 10/13/21 23:31 23:40 00:00 Pulse Rate 119 H 103 H 150 H Respiratory 16 Rate Blood Pressure 170/87 149/87 175/90 O2 Sat by Pulse 100 100 Oximetry 10/13/21 10/13/21 10/13/21 00:01 00:31 01:31 Pulse Rate 115 H 118 H 123 H Respiratory 16 16 16 Rate Blood Pressure 163/103 178/94 191/95 O2 Sat by Pulse 100 100 100 Oximetry 10/13/21 10/13/21 10/13/21 02:01 03:01 04:15 Pulse Rate 134 H 139 H 139 H Respiratory 16 16 0 L Rate Blood Pressure 167/88 157/89 157/89 O2 Sat by Pulse 100 100 100 Oximetry Constitutional: no acute distress, other (riding set rate on MVS, facial bruising, C-collar in place) Eyes: non-icteric, other (right periorbital swelling) Neck: other (C-collar) Effort: normal Ascultation: Bilateral: diminished breath sounds, rhonchi Cardiovascular: irregular rhythm, other (S1,S2) Gastrointestinal: normoactive bowel sounds, soft, non-tender, other (Barlow catheter) Integumentary: normal, other (right femoral CVL) Extremities: no cyanosis, no edema, pulses normal Neurologic: unable to assess CBC and BMP: 10/13/21 07:23 10/13/21 07:23 ABG, PT/INR, D-dimer: ABG ABG pH 7.430 pH Units (7.350-7.450) 10/13/21 03:36 ABG pCO2 40.1 mm Hg 10/13/21 03:36 ABG pO2 146.5 mm Hg (80.0-90.0) H 10/13/21 03:36 ABG O2 Saturation 98.8 % (95.0-99.0) 10/13/21 03:36 PT/INR, D-dimer PT 16.0 Sec. (12.2-14.9) H 10/11/21 19:27 INR 1.16 (0.87-1.13) H 10/11/21 19:27 Abnormal lab findings: Abnormal Labs 10/11/21 10/11/21 10/11/21 19:27 19:27 19:27 RBC 3.52 L Hgb 9.5 L Hct 32.4 L MCH 27 L MCHC 29 L RDW 20.8 H Seg Neuts % (Manual) 93.0 H Lymphocytes % (Manual) 1.0 L Seg Neutrophils # Man 8.2 H Lymphocytes # (Manual) 0.1 L PT 16.0 H INR 1.16 H APTT 54.4 H ABG pO2 ABG HCO3 ABG O2 Saturation ABG Hemoglobin Potassium Creatinine Glucose Lactic Acid 6.90 H* Calcium AST Alkaline Phosphatase Total Creatine Kinase Troponin T Albumin HDL Cholesterol Salicylates Acetaminophen Coronavirus (PCR) 10/11/21 10/11/21 10/11/21 19:27 19:27 19:27 RBC Hgb Hct MCH MCHC RDW Seg Neuts % (Manual) Lymphocytes % (Manual) Seg Neutrophils # Man Lymphocytes # (Manual) PT INR APTT ABG pO2 ABG HCO3 ABG O2 Saturation ABG Hemoglobin Potassium 3.2 L Creatinine 3.3 H Glucose 159 H Lactic Acid Calcium 12.4 H* AST 81 H Alkaline Phosphatase 184 H Total Creatine Kinase 43 L Troponin T 0.340 H* Albumin 3.5 L HDL Cholesterol 63 H Salicylates < 0.3 L Acetaminophen 5.0 L Coronavirus (PCR) 10/12/21 10/12/21 10/12/21 01:42 04:53 07:35 RBC Hgb Hct MCH MCHC RDW Seg Neuts % (Manual) Lymphocytes % (Manual) Seg Neutrophils # Man Lymphocytes # (Manual) PT INR APTT ABG pO2 544.3 H ABG HCO3 26.2 H ABG O2 Saturation 99.6 H ABG Hemoglobin 9.7 L Potassium Creatinine Glucose Lactic Acid 2.70 H* 2.50 H* Calcium AST Alkaline Phosphatase Total Creatine Kinase Troponin T Albumin HDL Cholesterol Salicylates Acetaminophen Coronavirus (PCR) 10/12/21 10/13/21 Unknown 03:36 RBC Hgb Hct MCH MCHC RDW Seg Neuts % (Manual) Lymphocytes % (Manual) Seg Neutrophils # Man Lymphocytes # (Manual) PT INR APTT ABG pO2 146.5 H ABG HCO3 ABG O2 Saturation ABG Hemoglobin 10.8 L Potassium Creatinine Glucose Lactic Acid Calcium AST Alkaline Phosphatase Total Creatine Kinase Troponin T Albumin HDL Cholesterol Salicylates Acetaminophen Coronavirus (PCR) Positive A Chest x-ray: image reviewed (persitent alveolar infiltrates) Additional Studies: Echocardiogram -LVEF 45-50% -Mildly hypokinetic RV -RVSP 30 Allied health notes reviewed: RT
[2021-10-13 07:42] LABS: Basophils % (Auto) 0.2 % (0.0-1.8); Lymphocytes # (Auto) 0.8 K/mm3 (1.2-5.4); Lymphocytes % (Auto) 4.9 % (13.4-35.0); Mean Corpuscular HGB Conc 30 % (32-34); Mean Corpuscular Volume 90 fl (84-94); Monocytes # (Auto) 2.4 K/mm3 (0.0-0.8); Monocytes % (Auto) 15.5 % (0.0-7.3); Platelet Count 222 K/mm3 (140-440); Red Blood Count 4.44 M/mm3 (3.65-5.03)
[2021-10-13 07:55] LABS: Red Cell Distribution Width 21.2 % (13.2-15.2)
[2021-10-13 08:09] LABS: Calcium 11.2 mg/dL (8.4-10.2)
[2021-10-13] MEDS: cefTRIAXone/NS 2 GM/100 ML 2 GM/100 ML BAG IV SCH (09:52)
[2021-10-13] MEDS ORDERED: HEPARIN 5,000 UNIT/1 ML VIAL SUB-Q SCH (10:00)
[2021-10-13] MEDS: FAMOTIDINE 20 MG/2 ML INJ IV SCH ×2 (10:19→10:27)
[2021-10-13] MEDS: SENNOSIDES/DOCUSATE SODIUM 8.6/50 MG TAB FEEDTUBE SCH (10:27)
--- NOTE | 2021-10-13 10:54 | Progress Note ---
Assessment and Plan - Patient Problems (1) Atrial fibrillation Current Visit: Yes Status: Acute (2) Cardiopulmonary arrest Current Visit: Yes Status: Acute Subjective Date of service: 10/13/21 Interval history: vent,,unresponsive Objective Vital Signs Pulse Resp BP Pulse Ox 10/13/21 08:26 150 H 10/13/21 08:01 146 H 17 126/89 100 10/13/21 07:31 141 H 16 147/118 98 10/13/21 07:01 121 H 16 147/118 100 10/13/21 06:31 135 H 15 153/114 100 10/13/21 06:01 128 H 16 162/109 100 10/13/21 06:00 132 H 148/98 10/13/21 05:31 126 H 16 166/97 97 10/13/21 05:01 135 H 16 147/99 100 10/13/21 04:31 135 H 17 161/96 100 10/13/21 04:15 139 H 0 L 157/89 100 10/13/21 03:01 139 H 16 157/89 100 10/13/21 02:01 134 H 16 167/88 100 10/13/21 01:31 123 H 16 191/95 100 10/13/21 00:31 118 H 16 178/94 100 10/13/21 00:01 115 H 16 163/103 100 10/13/21 00:00 150 H 175/90 10/12/21 23:40 103 H 149/87 100 10/12/21 23:31 119 H 16 170/87 100 10/12/21 23:01 115 H 16 176/95 100 10/12/21 22:31 111 H 16 177/96 100 10/12/21 22:01 114 H 16 172/85 100 10/12/21 21:31 109 H 16 158/102 100 10/12/21 21:01 97 H 16 165/89 100 10/12/21 20:31 112 H 16 159/96 100 10/12/21 20:01 102 H 16 150/87 100 10/12/21 19:31 97 H 16 154/91 100 10/12/21 19:15 103 H 149/87 100 10/12/21 19:01 91 H 16 161/84 100 10/12/21 18:47 104 H 16 149/87 100 10/12/21 18:31 103 H 16 149/87 100 10/12/21 18:01 99 H 16 160/79 100 10/12/21 17:31 100 H 16 157/82 100 10/12/21 17:01 104 H 17 147/88 100 10/12/21 16:38 99 H 152/88 100 10/12/21 16:31 100 H 16 151/85 100 10/12/21 16:01 104 H 16 152/82 100 10/12/21 15:31 97 H 16 152/88 100 10/12/21 15:01 102 H 16 147/78 100 10/12/21 14:31 105 H 16 149/81 100 10/12/21 14:01 101 H 16 147/90 100 10/12/21 13:31 102 H 16 150/84 100 10/12/21 13:01 95 H 16 151/81 100 10/12/21 12:31 102 H 22 147/82 100 10/12/21 12:01 89 16 151/82 100 10/12/21 11:31 89 18 147/91 100 10/12/21 11:01 93 H 17 146/83 100 - Physical Examination General: Other (U/R,,VENT) HEENT: Positive: Other (Pupils fixed) Neck: Positive: JVD/HJR, Other (Cervical collar) Cardiac: Positive: Irregularly Regular Lungs: Positive: Rhonchi Neuro: Positive: Other (Unresponsive, on the vent) Abdomen: Positive: Soft Skin: Positive: Clear Extremities: Absent: edema - Labs and Meds CBC 10/13/21 Range/Units 07:23 WBC 15.6 H (4.5-11.0) K/mm3 RBC 4.44 (3.65-5.03) M/mm3 Hgb 12.0 (11.8-15.2) gm/dl Hct 40.0 D (35.5-45.6) % Plt Count 222 (140-440) K/mm3 Lymph # (Auto) 0.8 L (1.2-5.4) K/mm3 [place] # (Auto) 2.4 H (0.0-0.8) K/mm3 Eos # (Auto) 0.0 (0.0-0.4) K/mm3 Baso # (Auto) 0.0 (0.0-0.1) K/mm3 Comprehensive Metabolic Panel 10/13/21 Range/Units 07:23 Sodium 139 (137-145) mmol/L Potassium 5.0 D (3.6-5.0) mmol/L Chloride 100.6 (98-107) mmol/L Carbon Dioxide 21 L (22-30) mmol/L BUN 35 H (9-20) mg/dL Creatinine 4.6 H (0.8-1.3) mg/dL Glucose 114 H (75-100) mg/dL Calcium 11.2 H (8.4-10.2) mg/dL
[2021-10-13] MEDS ORDERED: MAGNESIUM SULFATE 2 GM/50 ML BAG IV ONE (11:05)
--- NOTE | 2021-10-13 11:06 | Event Note ---
Date: 10/13/21 I responded to the room as the patient was in cardiac arrest. Patient was in a PEA rhythm. He was pulseless. CPR was in progress. He was given epinephrine 1 mg as well as bicarbonate 1 amp. CPR was continued. At the 2-minute pulse checks, patient had a palpable pulse. Respiratory had not been available. He was still on the ventilator at FiO2 of 40%. I had instructed them to increase the FiO2 since his saturations were 85%. He was tachycardic. His complex looked to be A. fib versus a flutter and irregular. I had asked for magnesium 2 g IV as well as an EKG. Rhythm strip was interpreted at that time as ventricular fibrillation. He underwent defibrillation at 200 J. He decompensated into a wide-complex tachycardia that seem to be consistent with ventricular tachycardia. He actually had a pulse at that time. Amiodarone was administered as a bolus. Amiodarone drip was also requested. At this time, the hospitalist was present and care was signed out to him.
[2021-10-13] MEDS ORDERED: NORepinephrine/NS 8 MG-250 ML 8 MG/250 ML INFUS..BTL IV ONE (11:23)
[2021-10-13 12:35] VITALS: BP 79/33
--- NOTE | 2021-10-13 13:27 | Progress Note ---
Assessment and Plan Impression: * End stage renal disease * OOH cardiac arrest, prolonged down time * Acute hypoxic respiratory failure * Anemia secondary to ESRD vs other Impression: * Patient is s/p cardiac arrest this AM * Will hold HD today - electrolytes are stable * Will assess hemodynamic stablity tomorrow AM * Cardiology following * Vent management per pulmonary medicine * Pressors prn; maintain MAP >65 * Dose medications for renal function * AM labs Subjective Date of service: 10/13/21 Objective - Vital Signs Vital signs: Vital Signs - 12hr 10/13/21 10/13/21 10/13/21 01:31 02:01 03:01 Pulse Rate 123 H 134 H 139 H Respiratory 16 16 16 Rate Blood Pressure 191/95 167/88 157/89 O2 Sat by Pulse 100 100 100 Oximetry 10/13/21 10/13/21 10/13/21 04:15 04:31 05:01 Pulse Rate 139 H 135 H 135 H Respiratory 0 L 17 16 Rate Blood Pressure 157/89 161/96 147/99 O2 Sat by Pulse 100 100 100 Oximetry 10/13/21 10/13/21 10/13/21 05:31 06:00 06:01 Pulse Rate 126 H 132 H 128 H Respiratory 16 16 Rate Blood Pressure 166/97 148/98 162/109 O2 Sat by Pulse 97 100 Oximetry 10/13/21 10/13/21 10/13/21 06:31 07:01 07:31 Pulse Rate 135 H 121 H 141 H Respiratory 15 16 16 Rate Blood Pressure 153/114 147/118 147/118 O2 Sat by Pulse 100 100 98 Oximetry 10/13/21 10/13/21 10/13/21 08:00 08:01 08:26 Pulse Rate 146 H 150 H Respiratory 17 Rate Blood Pressure 126/89 O2 Sat by Pulse 100 100 Oximetry 10/13/21 10/13/21 10/13/21 08:31 09:01 09:31 Pulse Rate 148 H 139 H 151 H Respiratory 17 17 16 Rate Blood Pressure 125/82 122/81 126/78 O2 Sat by Pulse 97 97 100 Oximetry 10/13/21 10/13/21 10/13/21 10:01 10:31 11:01 Pulse Rate 123 H 98 H 178 H Respiratory 17 18 20 Rate Blood Pressure 119/65 97/14 189/117 O2 Sat by Pulse 98 97 Oximetry 0110/13/21 10/13/21 11:31 12:01 12:33 Pulse Rate 50 L 51 L Respiratory 22 20 Rate Blood Pressure 106/31 79/33 O2 Sat by Pulse 78 L 0 L Oximetry - Lab 10/13/21 07:23 10/13/21 07:23 Most recent lab results ABG pH 7.430 pH Units (7.350-7.450) 10/13/21 03:36 ABG pCO2 40.1 mm Hg 10/13/21 03:36 ABG pO2 146.5 mm Hg (80.0-90.0) H 10/13/21 03:36 ABG HCO3 26.0 mmol/L (20.0-26.0) 10/13/21 03:36 ABG O2 Saturation 98.8 % (95.0-99.0) 10/13/21 03:36 Calcium 11.2 mg/dL (8.4-10.2) H 10/13/21 07:23 Medications & Allergies - Medications Allergies/Adverse Reactions: Allergies Unable to Assess Allergy (Unverified 10/11/21 20:15) Patient came in in Cardiac arrest Active Medications: Generic Name Dose Route Start Last Admin Trade Name Freq PRN Reason Stop Dose Admin Acetaminophen 650 mg 10/12/21 02:15 Acetaminophen 650 Mg Rect Supp MO Q6H PRN Pain MILD(1-3)/Fever >100.5/SAM Famotidine 10 mg 10/12/21 22:00 10/13/21 10:27 Famotidine 20 Mg/2 Ml Inj IV 10 mg BID OK Administration Fentanyl 50 mcg 10/11/21 19:06 Fentanyl 100 Mcg/2 Ml Inj IV Q10MIN PRN ANALGESIA Heparin Sodium (Porcine) 5,000 unit 10/13/21 10:00 10/13/21 09:51 Heparin 5,000 Unit/1 Ml Vial SUB-Q 5,000 unit Q12HR OK Administration Hydrophilic Ointment 1 applic 10/11/21 19:06 Lip Therapy Vaseline TP Q2HR PRN Dry Lips Fentanyl Citrate 2,000 mcg in 100 mls @ 3.856 mls/hr 10/11/21 20:00 10/12/21 18:39 Fentanyl Drip Premix IV 2 mcg/kg/hr TITR OK 7.711 mls/hr Administration Protocol 1 MCG/KG/HR Sodium Chloride 1,000 mls @ 125 mls/hr 10/12/21 02:15 Nacl 0.9% 1000 Ml IV DIRECT OK Ceftriaxone Sodium 2 gm in 100 mls @ 200 mls/hr 10/12/21 10:00 10/13/21 09:52 Rocephin/Ns 2 Gm/100 Ml IV 200 mls/hr Q24H OK Administration Protocol Magnesium Hydroxide 30 ml 10/12/21 02:15 Magnesium Hydroxide (Mom) Oral Liqd Udc PO Q4H PRN Constipation Metoprolol Tartrate 2.5 mg 10/12/21 12:00 10/13/21 06:00 Metoprolol Tartrate 5 Mg/5 Ml Inj IV 2.5 mg Q6HR OK Administration Morphine Sulfate 2 mg 10/12/21 02:15 Morphine 2 Mg/1 Ml Inj IV Q4H PRN Pain, Moderate (4-6) Morphine Sulfate 4 mg 10/12/21 02:15 Morphine 4 Mg/1 Ml Inj IV Q4H PRN Pain , Severe (7-10) Multi-Ingred Cream/Lotion/Oil/Oint 1 applic 10/11/21 19:06 Mineral Oil/Petrolatum, White Ophth Oint 3.5 Gm OU Q4HR PRN Dry Eye(s) Ondansetron HCl 4 mg 10/12/21 02:15 Ondansetron 4 Mg/2 Ml Inj IV Q8H PRN Nausea And Vomiting Senna/Docusate Sodium 1 tab 10/11/21 22:00 10/13/21 10:27 Sennosides/Docusate Sodium 8.6/50 Mg Tab FEEDTUBE Not Given BID OK Sodium Chloride 10 ml 10/12/21 10:00 10/13/21 09:53 Sodium Chloride 0.9% 10 Ml Flush Syringe IV 10 ml BID OK Administration Sodium Chloride 10 ml 10/12/21 02:15 Sodium Chloride 0.9% 10 Ml Flush Syringe IV PRN PRN LINE FLUSH
--- NOTE | 2021-10-13 15:34 | Discharge Summary ---
Providers - Providers Date of Admission: 10/12/21 02:18 Date of discharge: 10/13/21 Attending physician: JACQUELINE JAIMES 10/11/21 19:06 Consult to Dietitian/Nutrition [CONS] Routine Physician Instructions: Reason For Exam: Reason for Consult: Evaluate nutritional intake Consult to Physician [CONS] Urgent Comment: Consulting Provider: DAKOTA JEWELL Physician Instructions: Reason For Exam: esrd 10/11/21 19:09 Consult to Physician [CONS] Urgent Comment: Consulting Provider: NEDRA PAYAN Physician Instructions: Reason For Exam: s/p cardiac arrest 10/12/21 08:20 Consult to Physician [CONS] Routine Comment: Consulting Provider: POLI WARE Physician Instructions: Reason For Exam: PUI 10/12/21 08:22 Consult to Physician [CONS] Routine Comment: Consulting Provider: ZENON AUGUST Physician Instructions: Reason For Exam: Cardiac arrest Primary care physician: EMS INSTRUCTOR Hospitalization Condition: Critical Hospital course: 56-year-old male brought into the emergency room by EMS in cardiac arrest. Most information was obtained from the ER staff as patient is already intubated and sedated. Patient appears to have known history of end-stage renal disease on dialysis, diabetes mellitus, hyperlipidemia and hypertension, history of thoracic aorta stent graft placement. Patient was said to have collapsed at home after dialysis today. No CPR was started by the family or bystanders. EMS indicates the patient was pulseless for about an hour. He was intubated, defibrillated multiple times according to ACLS protocol. After prolonged resuscitation in the emergency room upon arrival patient had return of spontaneous circulation. Work-up in the emergency room today, chest x-ray reveals nonspecific bilateral pulmonary opacities which could represent pneumonia or edema. CT of the abdomen and pelvis was unremarkable. Lab was significant for lactic acidosis, hypercalcemia of 12.4, creatinine of 3.3, hypokalemia of 3.2. 10/12/2021 Patient has high probability of anoxic encephalopathy Bilateral pneumonia Broad-spectrum IV antibiotics 's pressors Rule out COVID 10/13/2021 Patient is COVID positive Patient had multiple cardiac arrests in the emergency room from 9 AM to 12 noon Patient was revived 3 times Fourth time patient could not be revived Time of expiration 1220 hrs. Assessment and Plan Critical care statement. We will be making [id number] . INR goal Creatinine Increasing Patient anticoagulated The high probability OF a clinically significant sudden or life-threatening deterioration of the cardiorespiratory system and endocrine system required my full and direct attention, intervention and postoperative management. The aggregate medical care time was 40 minutes. The time is in addition to time spent performing reported procedures but includes the followin: Data review and interpretation 2: Patient assessment and monitoring of vital signs 3: Documentation 4:: Medication orders and management Assessment and Plan - Patient Problems (1) Cardiac arrest Current Visit: Yes Status: Acute Plan to address problem: Patient could not be revived Time of expiration 1220 hrs. (2) End stage renal disease Current Visit: Yes Status: Acute Plan to address problem: Patient (3) Anoxic encephalopathy Discussed with brother the cause of his as anoxic encephalopathy and hypoxic respiratory failure secondary to COVID-pneumonia (4) Pneumonia Current Visit: Yes Status: Acute Plan to address problem: Patient was on IV antibiotics (5) Lactic acidosis Current Visit: Yes Status: Acute Plan to address problem: Secondary to cardiac arrest (6) Elevated troponin Current Visit: Yes Status: Acute Plan to address problem: Secondary to cardiac arrest Patient at 1220 hrs. Pronounced by me and certifying physician is me Disposition: 20 Final Discharge Diagnosis (Prints w/discharge instructions): Anoxic encephalopathy. Cardiac arrest. End-stage renal disease. Hypotension. COVID pneumonia Time spent for discharge: 40 min - Discharge Diagnoses (1) Cardiac arrest Status: Acute (2) Cardiopulmonary arrest Status: Acute (3) Atrial fibrillation Status: Acute (4) Elevated troponin Status: Acute (5) Lactic acidosis Status: Acute (6) Pneumonia Status: Acute Core Measure Documentation - Palliative Care Palliative Care/ Comfort Measures: Not Applicable - Core Measures Any of the following diagnoses?: none Exam - Physical Exam Narrative exam: Patient is intubated and on vent Coded multiple times and time of expiration 1220 hrs. - Constitutional Vitals: Temp Pulse Resp BP Pulse Ox 97.7 F 51 L 20 79/33 0 L 10/11/21 20:12 10/13/21 12:01 10/13/21 12:01 10/13/21 12:01 10/13/21 12:33 General appearance: Present: other (Pupils dilated and fixed) - Cardiovascular Heart rate: 0 Plan Durable Medical Equipment Needed Upon Discharge: other () Follow up with: PRIMARY CAREMD [Primary Care Provider] - 3-5 Days
== END 2021-10-13 12:18 | DRG 208 ==
LOC: EDBD → ED 18:29 → UNDOADMIN 10-12 02:18 → CC1 10-12 02:18 → ED 10-13 16:43
PROVIDERS: ADMIT Internal Medicine Geriatric Medicine; ATTEND Internal Medicine Cardiovascular Disease
PROC: 5A1945Z Respiratory Ventilation, 24-96 Consecutive Hours (ICD-10-PCS; principal; 2021-10-12)
PROC: 0BH17EZ Insertion of Endotracheal Airway into Trachea, Via Natural or Artificial Opening (ICD-10-PCS; 2021-10-12)
PROC: 06HM33Z Insertion of Infusion Device into Right Femoral Vein, Percutaneous Approach (ICD-10-PCS; 2021-10-12)
PROC: B54BZZA Ultrasonography of Right Lower Extremity Veins, Guidance (ICD-10-PCS; 2021-10-12)
PROC: 4A033R1 Measurement of Arterial Saturation, Peripheral, Percutaneous Approach (ICD-10-PCS; 2021-10-12)
PROC: 5A12012 Performance of Cardiac Output, Single, Manual (ICD-10-PCS; 2021-10-13)
PROC: 3E0234Z Introduction of Serum, Toxoid and Vaccine into Muscle, Percutaneous Approach (ICD-10-PCS; 2021-10-13)
DX: U07.1 COVID-19 (principal); J18.9 Pneumonia, unspecified organism; N18.6 End stage renal disease; J96.01 Acute respiratory failure with hypoxia; J12.82 Pneumonia due to coronavirus disease 2019; R65.10 Systemic inflammatory response syndrome (SIRS) of non-infectious origin without acute organ dysfunction; G93.1 Anoxic brain damage, not elsewhere classified; I46.9 Cardiac arrest, cause unspecified; I48.91 Unspecified atrial fibrillation; E87.6 Hypokalemia; E83.52 Hypercalcemia; D63.1 Anemia in chronic kidney disease; I25.10 Atherosclerotic heart disease of native coronary artery without angina pectoris; Z23 Encounter for immunization
CPT/HCPCS: 36415; 36600; 70450; 70486; 71045; 71275; 72125; 74177; 80048; 80053; 80061; 80320; 82140; 82550; 82803; 84145; 84443; 84484; 85007; 85025; 85610; 85730; 86850; 86900; 86901; 87040; 87076; 87186; 90715; 93005; 93010; 93306; 94002; 94003; G0378; J2354; J3490; J9280; G0480; J0456; J0696; J1100; J1644; J3010; J3475; J3480; J7120; Q9967; U0003